=== PATIENT | male | born 1940 | race Caucasian/White ===

== ENCOUNTER 2017-06-26 07:46 | Day surgery (SDC) | payer MEDICARE ==
[~2017-06-26] VITALS: Ht 180.3 cm; Wt 99.8 kg
[~2017-06-26 07:46] MED LIST: ACETAMINOPHEN 325 MG TAB PO PRN; ACETYLCHOLINE OPHTH SOLN 1% 2ML (MIOCHOL-E) As Ordered ONE; AVODART PO; BALANCED SALT IRRIGATION SOLUTION 500ML BAG (FOR OR EYE MACHINE) As Ordered ONE; CARB25TA PO; CEFD1CAP8 PO; CEFUROXIME 1MG/0.1ML INTRACAMERAL INJ As Ordered ONE; CLARITIN PO; CO Q400C2 PO; COQ10 PO; COUM2.5T17 PO; CYCLOPENTOLATE 2% OPHTH SOLN 2ML BTL OD ONE; FLOM5CAP PO; FLOMAX PO; FOLI400T PO; GLUC750T22 PO; HEALON DUET (HEALON 10MG/ML 0.55ML & HEALON ENDOCOAT 30MG/ML 0.85ML) As Ordered ONE; HYDR-3713 PO; IRON28TA PO; JANU100T PO; KEFL500C17 PO; LIDOCAINE 1% SDV 5 ML VIAL As Ordered ONE; LIDOCAINE 3.5 % 1ML OPHTH TOPICAL GEL OU ONE; LISI10TA4 PO; LISIPOW PO; LORA10TA2 PO; LYRI75CA PO; MELO7.5T7 PO; OFLOXACIN 0.3 % (OCUFLOX) OPTH SOL 5ML OD ONE; PAXI10TA12 PO; PERC5TAB12 PO; PHENYLEPHRINE 2.5% OPHTH SOL 2ML OD ONE; POVIDONE-IODINE 5% OPHTH PREP SOL 30ML As Ordered ONE; PRAM1TAB3 PO; PROPARACAINE 0.5% OPHTH SOL 15ML OD PRN; ROPI1TAB PO; SIMV20TA2 PO; SYNT112T2 PO; SYNTHROID PO; TROPICAMIDE 1% OPHTH SOLN 2ML OD ONE; TYLE325T5 PO; VITA10002 PO; VITA100066 PO; ZEST1TAB PO; ZOCOR PO
[2017-06-26] MEDS ORDERED: PHENYLEPHRINE 2.5% OPHTH SOL 2ML As Ordered ONE (07:58)
[2017-06-26] MEDS ORDERED: TROPICAMIDE 1% OPHTH SOLN 2ML As Ordered ONE (07:59)
[2017-06-26] MEDS ORDERED: OFLOXACIN 0.3 % (OCUFLOX) OPTH SOL 5ML As Ordered ONE (07:59)
[2017-06-26] MEDS ORDERED: CYCLOPENTOLATE 2% OPHTH SOLN 2ML BTL As Ordered ONE (07:59)
[2017-06-26] MEDS ORDERED: D5W/0.2% SODIUM CHLORIDE 250 ML IV ONE (08:00)
[2017-06-26] MEDS ORDERED: MIDAZOLAM INJ 2 MG/2 ML VIAL (J2250) As Ordered ONE (09:21)
[2017-06-26] MEDS ORDERED: fentaNYL 100 MCG/2 ML INJECTION (J3010) As Ordered ONE (09:21)
[2017-06-26] MEDS ORDERED: AcetaZOLAMIDE 500 MG ER CAP PO ONE (10:00)
[2017-06-26] MEDS ORDERED: ONDANSETRON 4MG/2ML VIAL (J2405) IV PRN (10:00)
[2017-06-26] MEDS ORDERED: TRIMETHOBENZAMIDE 300 MG CAP PO PRN (10:00)
[2017-06-26 10:05] VITALS: BP 125/63
--- NOTE | 2017-06-27 09:29 | RO ---
DATE OF PROCEDURE: 06/26/2017 PREPROCEDURE DIAGNOSIS: Age related nuclear cataract right eye. POSTPROCEDURE DIAGNOSIS: Age related nuclear cataract right eye. PROCEDURE: Phacoemulsification and posterior chamber intraocular lens implantation. The lens used was U00T0, 20.0 diopter. SURGEON: Jeannie Melton MD ORGANIC PREPARATION ANALYST: ANESTHESIA: Topical with sedation. DESCRIPTION OF PROCEDURE: The patient was prepped and draped in the usual fashion. A lid speculum was placed between the lids. The eye was fixated. A stab incision was made to the anterior chamber, and 1% non-preserved lidocaine was instilled. Then, viscoelastic was instilled. The eye was re-fixated. A 2.75 mm sapphire keratome was used to make a clear corneal temporal limbal incision. Capsulorrhexis was begun with a 30-gauge bent needle and then carried out in a circular fashion with capsulorrhexis forceps. The lens was hydrodissected, and then the phacoemulsification unit was used to make a groove in the nucleus in two meridians. The nucleus was then cracked into four quadrants. Each quadrant was removed with the phacoemulsification unit. Any remaining cortex was removed with the irrigation and aspiration (I and A) unit. Capsular bag was refilled with viscoelastic. A posterior chamber intraocular lens was placed in the capsular bag without difficulty. Any remaining viscoelastic was removed with the I and A unit. The wound was hydrated, and Miochol and cefuroxime were instilled into the anterior chamber. The patient tolerated the procedure well and went to the recovery room in stable condition.
== END 2017-06-26 10:20 | disposition home or self-care (01) ==
LOC: M SDC 07:46
PROVIDERS: ATTEND Ophthalmology
DX: H25.11 Age-related nuclear cataract, right eye (principal); E78.00 Pure hypercholesterolemia, unspecified; E11.9 Type 2 diabetes mellitus without complications; E03.9 Hypothyroidism, unspecified; G25.81 Restless legs syndrome; M19.90 Unspecified osteoarthritis, unspecified site; F32.9 Major depressive disorder, single episode, unspecified; F41.9 Anxiety disorder, unspecified; N40.0 Benign prostatic hyperplasia without lower urinary tract symptoms; Z88.8 Allergy status to other drugs, medicaments and biological substances; Z91.018 Allergy to other foods; Z79.899 Other long term (current) drug therapy
CPT/HCPCS: 66984; J2250; J3010; V2632

== ENCOUNTER 2017-07-17 09:51 | Day surgery (SDC) | payer MEDICARE ==
[~2017-07-17] VITALS: Ht 180.3 cm; Wt 99.8 kg
[~2017-07-17 09:51] MED LIST changes: -CYCLOPENTOLATE 2% OPHTH SOLN 2ML BTL OD ONE; +CYCLOPENTOLATE 2% OPHTH SOLN 2ML BTL XX ONE; -OFLOXACIN 0.3 % (OCUFLOX) OPTH SOL 5ML OD ONE; +OFLOXACIN 0.3 % (OCUFLOX) OPTH SOL 5ML XX ONE; -PHENYLEPHRINE 2.5% OPHTH SOL 2ML OD ONE; +PHENYLEPHRINE 2.5% OPHTH SOL 2ML XX ONE; -PROPARACAINE 0.5% OPHTH SOL 15ML OD PRN; +PROPARACAINE 0.5% OPHTH SOL 15ML OS PRN; -TROPICAMIDE 1% OPHTH SOLN 2ML OD ONE; +TROPICAMIDE 1% OPHTH SOLN 2ML XX ONE
[2017-07-17] MEDS ORDERED: LR 1,000 ML IV ONE (10:00)
[2017-07-17] MEDS ORDERED: MIDAZOLAM INJ 2 MG/2 ML VIAL (J2250) As Ordered ONE (12:02)
[2017-07-17] MEDS ORDERED: fentaNYL 100 MCG/2 ML INJECTION (J3010) As Ordered ONE (12:02)
[2017-07-17 13:00] VITALS: BP 148/65
[2017-07-17] MEDS ORDERED: AcetaZOLAMIDE 500 MG ER CAP PO ONE (13:00)
[2017-07-17] MEDS ORDERED: LR 1,000 ML IV SCH (13:00)
[2017-07-17] MEDS ORDERED: ACETAMINOPHEN TAB 650MG DOSE (2X325MG) PO PRN (13:00)
[2017-07-17] MEDS ORDERED: TRIMETHOBENZAMIDE 300 MG CAP PO PRN (13:00)
--- NOTE | 2017-07-17 13:30 | RO ---
DATE OF PROCEDURE: 07/17/2017 PREPROCEDURE DIAGNOSIS: Age related nuclear cataract left eye. POSTPROCEDURE DIAGNOSIS: Age related nuclear cataract left eye. PROCEDURE: Phacoemulsification and posterior chamber intraocular lens implantation left eye. The lens used was AU00T0, 19.5 diopters. SURGEON: Jeannie Melton MD GROCERY DELIVERER: ANESTHESIA: Topical with sedation. DESCRIPTION OF PROCEDURE: The patient was prepped and draped in the usual fashion. A lid speculum was placed between the lids. The eye was fixated. A stab incision was made to the anterior chamber, and 1% non-preserved lidocaine was instilled. Then, viscoelastic was instilled. The eye was re-fixated. A 2.75 mm sapphire keratome was used to make a clear corneal temporal limbal incision. Capsulorrhexis was begun with a 30-gauge bent needle and then carried out in a circular fashion with capsulorrhexis forceps. The lens was hydrodissected, and then the phacoemulsification unit was used to make a groove in the nucleus in two meridians. The nucleus was then cracked into four quadrants. Each quadrant was removed with the phacoemulsification unit. Any remaining cortex was removed with the irrigation and aspiration (I and A) unit. Capsular bag was refilled with viscoelastic. A posterior chamber intraocular lens was placed in the capsular bag without difficulty. Any remaining viscoelastic was removed with the I and A unit. The wound was hydrated, and Miochol and cefuroxime were instilled into the anterior chamber. The patient tolerated the procedure well and went to the recovery room in stable condition.
== END 2017-07-17 13:05 | disposition home or self-care (01) ==
LOC: M SDC 09:51
PROVIDERS: ATTEND Ophthalmology
DX: H25.12 Age-related nuclear cataract, left eye (principal); E78.00 Pure hypercholesterolemia, unspecified; E11.9 Type 2 diabetes mellitus without complications; E03.9 Hypothyroidism, unspecified; M19.90 Unspecified osteoarthritis, unspecified site; F41.9 Anxiety disorder, unspecified; F32.9 Major depressive disorder, single episode, unspecified; G25.81 Restless legs syndrome; N40.0 Benign prostatic hyperplasia without lower urinary tract symptoms; Z88.8 Allergy status to other drugs, medicaments and biological substances; Z91.018 Allergy to other foods; Z79.899 Other long term (current) drug therapy
CPT/HCPCS: 66984; J2250; J3010; V2632

== ENCOUNTER → 2018-07-14 | Outpatient (REF) ==
[2018-07-14 11:56] LABS: RUBELLA IgG QUALITATIVE IMMUNE (IMMUNE)
== END ==
LOC: M LAB 09:09
DX: Z00.00 Encounter for general adult medical examination without abnormal findings (principal)

== ENCOUNTER → 2019-03-23 | Outpatient (REF) | payer MEDICARE ==
[~2019-03-23] MED LIST changes: -ACETAMINOPHEN 325 MG TAB PO PRN; -ACETYLCHOLINE OPHTH SOLN 1% 2ML (MIOCHOL-E) As Ordered ONE; -BALANCED SALT IRRIGATION SOLUTION 500ML BAG (FOR OR EYE MACHINE) As Ordered ONE; -CARB25TA PO; +CARB25TA9 PO; -CEFUROXIME 1MG/0.1ML INTRACAMERAL INJ As Ordered ONE; -CYCLOPENTOLATE 2% OPHTH SOLN 2ML BTL XX ONE; +FLOM0.4C39 PO; -FLOM5CAP PO; -HEALON DUET (HEALON 10MG/ML 0.55ML & HEALON ENDOCOAT 30MG/ML 0.85ML) As Ordered ONE; -LIDOCAINE 1% SDV 5 ML VIAL As Ordered ONE; -LIDOCAINE 3.5 % 1ML OPHTH TOPICAL GEL OU ONE; +LORA-243 PO; -LORA10TA2 PO; -OFLOXACIN 0.3 % (OCUFLOX) OPTH SOL 5ML XX ONE; -PHENYLEPHRINE 2.5% OPHTH SOL 2ML XX ONE; -POVIDONE-IODINE 5% OPHTH PREP SOL 30ML As Ordered ONE; -PRAM1TAB3 PO; +PRAM1TAB7 PO; -PROPARACAINE 0.5% OPHTH SOL 15ML OS PRN; -TROPICAMIDE 1% OPHTH SOLN 2ML XX ONE
[2019-03-23 14:03] LABS: APPEARANCE, URINE HAZY (CLEAR); BACTERIA, URINE AUTO NEGATIVE (NEGATIVE); BILIRUBIN, URINE AUTO NEGATIVE (NEGATIVE); BLOOD, URINE BLOOD 3+ (NEGATIVE); COLOR, URINE YELLOW (YELLOW); GLUCOSE, URINE (UA) AUTO NEGATIVE (NEGATIVE); KETONE, URINE AUTO TRACE mg/dL (NEGATIVE); LEUKOCYTE ESTERASE, URINE AUTO NEGATIVE (NEGATIVE); MUCUS, URINE SMALL (NEGATIVE); NITRITE, URINE AUTO NEGATIVE (NEGATIVE); PROTEIN, URINE AUTO 3+ mg/dL (NEGATIVE); RBC, URINE AUTO 70 /HPF (0-3); SPECIFIC GRAVITY URINE AUTO 1.024 (1.002-1.035); SQUAMOUS EPITHELIAL CELL UR AU 0 /HPF (0-6); WBC, URINE AUTO 3 /HPF (0-3)
== END ==
LOC: M SMT 13:30
PROVIDERS: ATTEND Nurse Practitioner Family
DX: R31.29 Other microscopic hematuria (principal)
CPT/HCPCS: 51798; 81001; 87186; 88108; G0463

== ENCOUNTER → 2019-03-27 | Outpatient (CLI) | payer MEDICARE ==
[~2019-03-27] MED LIST changes: +ISOVUE-370 76% 100ML VIAL (Q9967) As Ordered ONE
--- NOTE | 2019-03-27 11:17 | REP ---
CT urogram: CT scan abdomen and pelvis without and with IV contrast, multiphase postcontrast exam. History: Microscopic hematuria. No comparison abdomen CT. CT contrast dose: 100 mL of intravenous Isovue [address] findings: Digital preliminary supervisor solder making radiograph demonstrates a normal bowel gas pattern and a left hip replacement. The heart appears somewhat enlarged. On axial images there is a small right pleural effusion. No focal hepatic or splenic lesion is seen. There is opaque material layering in the dependent portion the gallbladder consistent with gravel like stones or mineralized sludge. No pancreatic lesion is observed. No adrenal lesion is seen on either side. No intrarenal calculus is observed. No evidence of hydronephrosis on either side. No renal mass lesion is observed. Kidneys enhance symmetrically. There are small bilateral parapelvic cysts noted. Delayed scan images show no evidence of renal mass or pelvic mass. No filling defect is seen in the collecting system. The ureters describe a normal course to the urinary bladder. The prostate elevates the bladder base. Prostate is moderately enlarged. No other mass effect is seen within the urinary bladder. No abdominal wall defect is seen. A normal appendix is observed. There is left colonic diverticulosis without CT evidence of diverticulitis. No bony destructive lesion is seen. Impression: 1. Enlarged prostate. No urinary tract calculus or other genitourinary mass. 2. Gravel like stones versus mineralized sludge in the gallbladder. 3. Small right pleural effusion. Cardiomegaly. Electronically Signed by Camilo Flores MD 03/27/2019 02:47 P
== END ==
LOC: M RAD 08:28
PROVIDERS: ATTEND Nurse Practitioner Family
DX: N41.0 Acute prostatitis (principal); K83.9 Disease of biliary tract, unspecified; J90 Pleural effusion, not elsewhere classified; I51.7 Cardiomegaly
CPT/HCPCS: 74178; Q9967

== ENCOUNTER 2019-06-15 12:30 | Inpatient (IN) | payer MEDICARE ==
[~2019-06-15] VITALS: Ht 180.3 cm; Wt 97.4 kg
[~2019-06-15 12:30] MED LIST changes: +CYAN100049 PO; -ISOVUE-370 76% 100ML VIAL (Q9967) As Ordered ONE; -VITA10002 PO
[2019-06-15] MEDS ORDERED: SIMV20TA2 PO (12:36)
[2019-06-15] MEDS ORDERED: LISI-542 PO (12:37)
[2019-06-15] MEDS ORDERED: FURO40TA2 PO (12:37)
[2019-06-15] MEDS ORDERED: CO-E100C3 PO (12:39)
[2019-06-15] MEDS ORDERED: HYDR-643 PO (12:39)
[2019-06-15] MEDS ORDERED: MAGN400T2 PO (12:39)
--- NOTE | 2019-06-15 14:33 | REP ---
Clinical: Cough and dyspnea. Technique: PA and lateral. Comparison: 07/07/2016. Findings: Minimal right basilar atelectasis and small right pleural effusion. Mediastinum and cardiac silhouette are stable and within normal limits. No pneumothorax. Skeletal structures intact. Impression: Trace right basilar atelectasis and small right pleural effusion. Electronically Signed by Ten Mcintyre MD 06/15/2019 02:25 P
[2019-06-15 14:53] LABS: BASO % 0.2 % (0.0-1.0); EOS # 0.2 10^3/uL (0.0-0.50); EOS % 1.8 % (0.0-3.0); HEMATOCRIT 40.7 % (42.0-52.0); HEMOGLOBIN 13.1 g/dl (13.5-17.5); LYMPH # 1.9 10^3/uL (1.5-4.5); LYMPH % 18.3 % (24.0-44.0); MEAN CORPUSCULAR HEMOGLOBIN 30.4 pg (27.0-33.0); MEAN CORPUSCULAR HGB CONC 32.2 g/dl (32.0-36.5); MEAN CORPUSCULAR VOLUME 94.4 fl (80.0-96.0); MONO # 0.9 10^3/uL (0.0-0.8); MONO % 8.5 % (0.0-5.0); NEUTROPHILS # 7.4 10^3/uL (1.8-7.7); NEUTROPHILS % 70.7 % (36.0-66.0); PLATELET COUNT, AUTOMATED 216 10^3/uL (150-450); RED BLOOD COUNT 4.31 10^6/uL (4.30-6.10); WHITE BLOOD COUNT 10.5 10^3/uL (4.0-10.0)
[2019-06-15 15:06] LABS: PROTHROMBIN TIME 12.9 SECONDS (11.8-14.0)
[2019-06-15 15:19] LABS: ALBUMIN 3.3 GM/DL (3.2-5.2); ALT/SGPT 7 U/L (12-78); BILIRUBIN,DIRECT 0.2 MG/DL (0.0-0.2); BILIRUBIN,TOTAL 0.5 MG/DL (0.2-1.0); BLOOD UREA NITROGEN 25 MG/DL (7-18); CALCIUM LEVEL 9.1 MG/DL (8.8-10.2); CARBON DIOXIDE LEVEL 28 MEQ/L (21-32); CHLORIDE LEVEL 107 MEQ/L (98-107); CK-MB VALUE MASS 3.5 NG/ML (<3.6); CPK CREATINE PHOSPHOKINASE 206 U/L (39-308); CREATININE FOR GFR 1.22 MG/DL (0.70-1.30); GLOMERULAR FILTRATION RATE > 60.0 (>42); GLUCOSE, FASTING 103 MG/DL (70-100); NT-PRO BNP 1463 PG/ML (<450); POTASSIUM SERUM 5.3 MEQ/L (3.5-5.1); SODIUM LEVEL 140 MEQ/L (136-145); TOTAL PROTEIN 6.5 GM/DL (6.4-8.2); TROPONIN I 0.06 NG/ML (< 0.10)
[2019-06-15] MEDS ORDERED: [UNRECOGNIZED DRUG - CODE] PO (17:01)
[2019-06-15] MEDS ORDERED: LEVO125T4 PO (17:01)
[2019-06-15] MEDS ORDERED: SITA50TAB PO (17:01)
[2019-06-15] MEDS ORDERED: ROPI2TAB24 PO (17:01)
--- NOTE | 2019-06-15 20:21 | ECGEPIP ---
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
--- NOTE | 2019-06-15 20:58 | HPEPDOC ---
[facility] Medical History & Physical Date of Admission Jun 15, 2019 Date of Service: Jun 15, 2019 Attending Physician: REGINALD DRIVER MD History and Physical CHIEF COMPLAINT: SOB HISTORY OF PRESENT ILLNESS: Pt is a 79 y/o male with hx of DMII, HTN, Hypothyroid, ?parkinson's, BPH and RLS who presents for worsened SOB over the last week. Pt notes that about 1 week prior to admission he started feeling noticeably more short of breath doing activities he would normally be able to to do. He notes needing to take more breaks. Pt also endorses waking up at night feeling short of breath. Pt saw his PMD last saturday (three days prior to admission) where he was prescribed lasix for "fluid around the heart". Pt says he took the medicine but it did not help his symptoms. Pt awoke on day of admission and as he wasn't feeling better he called his PMD who urged him to present to the ED for further evaluation. Pt endorses SOB with exertion, PND but denies other symptoms of fever, chills, chest pain, nausea, vomiting, diarrhea, dysuria, leg pain. PAST MEDICAL HISTORY: 1. DMII 2. HTN 3. Hypothyriod 4. ?Parkinson's 5. BPH 6. Restless leg syndrome PAST SURGICAL HISTORY: 1. Total hip arthroplasty 2. Prostate surgery 3. TURP 3. Removal of lipoma. SOCIAL HISTORY: Lives alone. Previous smoker, 1 pack per day for 15 years. Denies alcohol. Denies illicits FAMILY HISTORY: Cancer ALLERGIES: Please see below. REVIEW OF SYSTEMS: 10 point ROS reviewed and pertinent positives and negatives documented as per HPI. All other reviewed ROS negative HOME MEDICATIONS: Please see below. PHYSICAL EXAMINATION: VITAL SIGNS: Please see below GENERAL APPEARANCE:, Sitting up in bed in no acute distress, speaking in full sentences. No accessory muscle use. HEENT: PERRL, EOMI, OP clear, tongue straight, impaired hearing CARDIOVASCULAR: Bib, regular, nl s1/2 no mrg appreciated LUNGS: bibasilar crackles, no w/r ABDOMEN: soft, NT, ND MUSCULOSKELETAL: no gross deformities EXTREMITIES: 1+ pitting edema b/l, intact distal pulses NEUROLOGICAL: no focal deficits PSYCHIATRIC: nl mental status, A&Ox3 LABORATORY DATA: See below. IMAGING: CXR (My read): mild blunting of right CP angle, normal cardiac silhouette, no acute cardiopulmonary disease identified MICROBIOLOGY: Please see below. ASSESSMENT: Pt is a 79 y/o male with hx of DMII, HTN, Hypothyroid, ?parkinson's, BPH and RLS who presents for worsened SOB over the last week with decreased exercise tolerance and PND found to have proBNP 1463 along with crackles and LE pitting edema all consistent with heart failure as the etiology of pt's SOB. . PLAN: 1. probable heart failure ?preserved ejection fraction -admit to inpatient with tele -daily weights -strict I&O's -lasix 40mg IV BID -trend BMP, mag -echo pending 2. HTN -trend BP -restart home meds 3. hypothyroid -restart home meds 4. DMII -FSG -ISS -hold oral agents 5. Parkinson's -unclear dx -will cont. sinemet 6. BPH -cont. tamsulosin DVT PPX: lovenox Disposition: home pending echo and clinical improvement in symptoms Vital Signs Vital Signs Date Time Temp Pulse Resp B/P (MAP) Pulse Ox O2 Delivery O2 Flow Rate FiO2 06/15/19 18:01 158/85 (109) Room Air 06/15/19 17:45 48 97 06/15/19 17:00 16 06/15/19 13:31 95 06/15/19 12:31 97.2 Laboratory Data Labs 24H Laboratory Tests 2 06/15/19 14:39: Immature Granulocyte % (Auto) 0.5, White Blood Count 10.5H, Red Blood Count 4.31, Hemoglobin 13.1L, Hematocrit 40.7L, Mean Corpuscular Volume 94.4, Mean Corpuscular Hemoglobin 30.4, Mean Corpuscular Hemoglobin Concent 32.2, Red Cell Distribution Width 14.2, Platelet Count 216, Neutrophils (%) (Auto) 70.7H, Lymphocytes (%) (Auto) 18.3L, Monocytes (%) (Auto) 8.5H, Eosinophils (%) (Auto) 1.8, Basophils (%) (Auto) 0.2, Neutrophils # (Auto) 7.4, Lymphocytes # (Auto) 1.9, Monocytes # (Auto) 0.9H, Eosinophils # (Auto) 0.2, Basophils # (Auto) 0.0, Nucleated Red Blood Cells % (auto) 0.0, Prothrombin Time 12.9, Prothromb Time International Ratio 1.00, Anion Gap 5L, Glomerular Filtration Rate > 60.0, Calcium Level 9.1, Aspartate Amino Transf (AST/SGOT) 12, Alanine Aminotransferase (ALT/SGPT) 7L, Alkaline Phosphatase 79, Total Bilirubin 0.5, Direct Bilirubin 0.2, Total Creatine Kinase 206, Creatine Kinase MB 3.5, Creatine Kinase MB Relative Index 1.70, Troponin I 0.06, MC-Mum-D-Type Natriuretic Peptide 1463H, Total Protein 6.5, Albumin 3.3, Albumin/Globulin Ratio 1.03 CBC/BMP Laboratory Tests 06/15/19 14:39 Red Blood Count 4.31, Mean Corpuscular Volume 94.4, Mean Corpuscular Hemoglobin 30.4, Mean Corpuscular Hemoglobin Concent 32.2, Red Cell Distribution Width 14.2, Neutrophils (%) (Auto) 70.7 H, Lymphocytes (%) (Auto) 18.3 L, Monocytes (%) (Auto) 8.5 H, Eosinophils (%) (Auto) 1.8, Basophils (%) (Auto) 0.2, Neutrophils # (Auto) 7.4, Lymphocytes # (Auto) 1.9, Monocytes # (Auto) 0.9 H, Eosinophils # (Auto) 0.2, Basophils # (Auto) 0.0 Home Medications Scheduled Carbidopa/Levodopa (Carbidopa-Levodopa 25-100 Tab) 1 Tab Tab, 2 TAB PO TID 1200/1600/2000 Folic Acid (Folic Acid) 400 Mcg Tab, 400 MCG PO DAILY Furosemide (Furosemide) 40 Mg Tablet, 40 MG PO DAILY Hydroxyzine HCl (Hydroxyzine HCl) 10 Mg Tablet, 10 MG PO QHS Levothyroxine Sodium (Levothyroxine Sodium) 125 Mcg Tablet, 125 MCG PO DAILY Lisinopril (Lisinopril) 5 Mg Tablet, 5 MG PO DAILY Magnesium Oxide (Magnesium Oxide) 400 Mg Tablet, 400 MG PO DAILY Ropinirole HCl (Ropinirole ER) 2 Mg Tab.er.24h, 2 MG PO QAM Ropinirole HCl (Requip Xl) 6 Mg Tab.er.24h, 6 MG PO QHS Simvastatin (Simvastatin) 20 Mg Tablet, 20 MG PO QHS Sitagliptin (Januvia) 50 Mg Tablet, 50 MG PO DAILY Tamsulosin HCl (Flomax) 0.4 Mg Cap, 0.4 MG PO QHS Ubidecarenone/Vit E/Vit E Mix (Co-Enzyme Q10 100 mg Softgel) 1 Each Capsule, 1 CAP PO DAILY Allergies Coded Allergies: NSAIDS (Non-Steroidal Anti-Inflamma (Verified Allergy, Severe, tongue swelling, 06/15/19) Nut Tree (Verified Allergy, Mild, eyes swell, 06/15/19) rotigotine (Verified Adverse Reaction, Mild, INSOMNIA, 06/15/19) A-FIB/CHADSVASC A-FIB History Current/History of A-Fib/PAF?: No REGINALD DRIVER MD Jun 15, 2019 20:58
[2019-06-15 22:00] VITALS: BP 110/80
[2019-06-15] MEDS: ENOXAPARIN 40 MG/0.4 ML SYRINGE (J1650) SC SCH (22:02)
[2019-06-15] MEDS: SINEMET 25-100 MG TAB PO SCH (22:03)
[2019-06-15] MEDS: TAMSULOSIN 0.4 MG CAP PO SCH (22:04)
[2019-06-15] MEDS: SIMVASTATIN 20 MG TAB PO SCH (22:04)
[2019-06-15 22:43] LABS: BLOOD UREA NITROGEN 23 MG/DL (7-18); CALCIUM LEVEL 8.5 MG/DL (8.8-10.2); CARBON DIOXIDE LEVEL 27 MEQ/L (21-32); CHLORIDE LEVEL 107 MEQ/L (98-107); CREATININE FOR GFR 1.18 MG/DL (0.70-1.30); GLOMERULAR FILTRATION RATE > 60.0 (>42); GLUCOSE, FASTING 91 MG/DL (70-100); MAGNESIUM LEVEL 2.3 MG/DL (1.8-2.4); SODIUM LEVEL 139 MEQ/L (136-145)
[2019-06-15] MEDS: hydrOXYzine 10 MG TAB PO SCH (23:37)
[2019-06-15] MEDS: FUROSEMIDE 40 MG/4 ML VIAL (J1940) IV SCH (23:38)
[2019-06-16 05:43] VITALS: BP 104/56
[2019-06-16] MEDS: LEVOTHYROXINE 125MCG TABLET (0.125MG) PO SCH (05:51)
[2019-06-16 08:21] LABS: MEAN CORPUSCULAR HEMOGLOBIN 30.2 pg (27.0-33.0); MEAN CORPUSCULAR HGB CONC 32.5 g/dl (32.0-36.5); PLATELET COUNT, AUTOMATED 208 10^3/uL (150-450)
[2019-06-16 08:50] LABS: BLOOD UREA NITROGEN 21 MG/DL (7-18); CALCIUM LEVEL 8.6 MG/DL (8.8-10.2); CARBON DIOXIDE LEVEL 28 MEQ/L (21-32); CHLORIDE LEVEL 105 MEQ/L (98-107); CREATININE FOR GFR 1.22 MG/DL (0.70-1.30); GLOMERULAR FILTRATION RATE > 60.0 (>42); GLUCOSE, FASTING 187 MG/DL (70-100); POTASSIUM SERUM 4.9 MEQ/L (3.5-5.1); SODIUM LEVEL 138 MEQ/L (136-145)
[2019-06-16] MEDS: LISINOPRIL 5 MG TAB PO SCH (09:00)
[2019-06-16] MEDS: MAGNESIUM OXIDE 400 MG TAB (MAG-OX) PO SCH (09:04)
[2019-06-16] MEDS: SINEMET 25-100 MG TAB PO SCH ×3 (12:16→21:11)
[2019-06-16] MEDS: FUROSEMIDE 40 MG/4 ML VIAL (J1940) IV SCH (12:17)
[2019-06-16 14:00] VITALS: BP 128/65
--- NOTE | 2019-06-16 19:36 | IPNPDOC ---
Subjective Date Seen The patient was seen on 06/16/19. Subjective Chief Complaint/HPI Follow-up heart failure exacerbation Events since last encounter Patient seen and examined at bedside. Patient feeling much better today. Denies fevers, chills, chest pain, difficulty breathing, nausea, vomiting, diarrhea, PND, leg pain. Leg swelling improved. Objective Physical Examination General Exam: Positive: Alert, Cooperative, No Acute Distress Chest Exam: Positive: Rales Heart Exam: Positive: Bradycardic, Regular Rhythm, Normal S1, Normal S2 Telemetry: Positive: Bradycardia Abdomen Exam: Positive: Normal bowel sounds, Soft; Negative: Tenderness Extremity Exam: Positive: Edema (1+ pitting edema), Normal pulses Skin Exam: Negative: Rash, Breakdown Neuro Exam: Positive: Normal Speech, Other (no focal deficits) Psych Exam: Positive: Mental status NL, Mood NL, Oriented x 3 Assessment /Plan Assessment Pt is a 79 y/o male with hx of DMII, HTN, Hypothyroid, ?parkinson's, BPH and RLS who presents for worsened SOB over the last week with decreased exercise tolerance and PND found to have proBNP 1463 along with crackles and LE pitting edema all consistent with heart failure as the etiology of pt's SOB. Pt now improving with lasix. Plan/VTE VTE Prophylaxis Ordered?: Yes Plan 1. probable heart failure ?preserved ejection fraction -admit to inpatient with tele -daily weights -strict I&O's -lasix 40mg IV BID -trend BMP, mag -echo pending -spoke to cardiology and pt's ectopy and heart block are chronic. Pt to have rapid follow up with cardiology on discharge. 2. HTN -trend BP -restart home meds 3. hypothyroid -restart home meds 4. DMII -FSG -ISS -hold oral agents 5. Parkinson's -unclear dx -will cont. sinemet 6. BPH -cont. tamsulosin Disposition pending improvement in symptoms VS, I&O, 24H, Fishbone Vital Signs/I&O Vital Signs Date Time Temp Pulse Resp B/P (MAP) Pulse Ox O2 Delivery O2 Flow Rate FiO2 06/16/19 14:00 97.2 69 18 128/65 (86) 100 06/15/19 18:01 Room Air 06/15/19 13:31 95 I&O- Last 24 Hours up to 6 AM 06/16/19 06:00 Intake Total 1200 ml Output Total 1600 ml Balance -400 ml Laboratory Data 24H LABS Laboratory Tests 2 06/15/19 22:12: Anion Gap 5L, Glomerular Filtration Rate > 60.0, Blood Urea Nitrogen 23H, Creatinine 1.18, Sodium Level 139, Potassium Level 4.0#, Chloride Level 107, Carbon Dioxide Level 27, Calcium Level 8.5L, Magnesium Level 2.3 06/16/19 08:10: Anion Gap 5L, Glomerular Filtration Rate > 60.0, Blood Urea Nitrogen 21H, Creatinine 1.22, Sodium Level 138, Potassium Level 4.9#, Chloride Level 105, Carbon Dioxide Level 28, Calcium Level 8.6L, Nucleated Red Blood Cells % (auto) 0.0 CBC/BMP Laboratory Tests 06/15/19 22:12 Calcium Level 8.5 L 06/16/19 08:10 Calcium Level 8.6 L, Red Blood Count 4.30, Mean Corpuscular Volume 93.0, Mean Corpuscular Hemoglobin 30.2, Mean Corpuscular Hemoglobin Concent 32.5, Red Cell Distribution Width 14.3 REGINALD DRIVER MD Jun 16, 2019 19:36
--- NOTE | 2019-06-16 19:54 | ECHO ---
DATE OF PROCEDURE: 06/16/2019 DATE OF : 1940 AGE: 79 GENDER: Male. HEIGHT: 71 inches WEIGHT: 227 pounds BODY SURFACE AREA: 2.22 m2 PATIENT LOCATION: Inpatient, [address] [place] [address], room 4236. REFERRING PHYSICIAN: Abraham Hunt MD INDICATION: Dyspnea. 2D MEASUREMENTS: RV: 4.6 cm LV: 6.3 cm Septum: 1.3 cm Posterior wall: 1.3 cm Aortic root: 4.0 cm LA: 5.5 cm LVEF: 65%. DOPPLER MEASUREMENTS: AV: 1.4 m/s LVOT: 1.1 m/s LVOT diameter: 2.1 cm MV-E: 99, A: 55, EA ratio: 1.8 Early mitral deceleration time: 225 ms E prime: 4.6, A prime: 7.2, E/E prime ratio: 21.5 PCWP: 19 mmHg PV: 0.9 m/s Pulmonary artery acceleration time: 110 ms RVSP: 53 - 55 mmHg IVC: 2.6 cm COMMENTS: Normal sinus rhythm with first-degree AV block and right bundle branch block. M-mode and two-dimensional echocardiography was performed with pulsed, continuous wave, color flow and tissue Doppler studies. Moderately dilated left ventricle that was mildly hypertrophied symmetrically with normal wall motion. Moderately prominently dilated left atrium with impairment of LV diastolic function and at least mildly elevated estimated mean left atrial pressure. Mild - moderately dilated right ventricular right ventricle with normal wall motion and Doppler evidence of at least moderate pulmonary hypertension. Moderately dilated right atrium and IVC with reduced respiratory collapse in keeping with an elevated central venous pressure of 15 - 20 mmHg. Subtle aortic valvular sclerosis without stenosis and only very mild insufficiency. Mildly dilated aortic root. Slight thickening of the mitral annulus but normal leaflet thickness and excursion with mild mitral insufficiency. Normal appearing tricuspid valve with mild insufficiency. No apparent intracardiac mass or pericardial effusion. MTDD
[2019-06-16] MEDS: SIMVASTATIN 20 MG TAB PO SCH (21:10)
[2019-06-16] MEDS: TAMSULOSIN 0.4 MG CAP PO SCH (21:10)
[2019-06-16] MEDS: hydrOXYzine 10 MG TAB PO SCH (21:11)
[2019-06-16] MEDS: ENOXAPARIN 40 MG/0.4 ML SYRINGE (J1650) SC SCH (21:11)
[2019-06-16 22:00] VITALS: BP 135/71
[2019-06-17] MEDS: FUROSEMIDE 40 MG/4 ML VIAL (J1940) IV SCH (00:50)
[2019-06-17] MEDS ORDERED: ACETAMINOPHEN TAB 650MG DOSE (2X325MG) PO PRN (02:00)
[2019-06-17] MEDS: LEVOTHYROXINE 125MCG TABLET (0.125MG) PO SCH (05:45)
[2019-06-17 06:00] VITALS: BP 114/72
[2019-06-17 06:42] LABS: CALCIUM LEVEL 9.1 MG/DL (8.8-10.2); CREATININE FOR GFR 1.34 MG/DL (0.70-1.30); GLOMERULAR FILTRATION RATE 54.9 (>42); MAGNESIUM LEVEL 2.5 MG/DL (1.8-2.4); POTASSIUM SERUM 4.3 MEQ/L (3.5-5.1)
--- NOTE | 2019-06-17 09:38 | ECGEPIP ---
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
[2019-06-17] MEDS: MAGNESIUM OXIDE 400 MG TAB (MAG-OX) PO SCH (10:02)
[2019-06-17 10:03] VITALS: BP 114/72
[2019-06-17] MEDS: LISINOPRIL 5 MG TAB PO SCH (10:03)
[2019-06-17] MEDS: SINEMET 25-100 MG TAB PO SCH (12:22)
[2019-06-17] MEDS ORDERED: ELIQ5TAB PO (12:37)
[2019-06-17] MEDS ORDERED: APIXABAN 5 MG TAB (ELIQUIS) PO ONE (12:45)
--- NOTE | 2019-06-17 12:54 | DS.PDOC ---
Discharge Summary General Date of Admission Jun 15, 2019 at 15:50 Date of Discharge 06/17/19 Attending Physician: REGINALD DRIVER MD Discharge Summary PROCEDURES PERFORMED DURING STAY: None. ADMITTING DIAGNOSES: 1. acute on chronic heart failure with preserved ejection fraction (acute on chronic diastolic CHF) 2. DMII 3. HTN 4. Hypothyriod 5. ?Parkinson's 6. BPH 7. Restless leg syndrome DISCHARGE DIAGNOSES: 1. acute on chronic heart failure with preserved ejection fraction (acute on chronic diastolic CHF) 2. DMII 3. HTN 4. Hypothyriod 5. ?Parkinson's 6. BPH 7. Restless leg syndrome COMPLICATIONS/CHIEF COMPLAINT: Heart Failture. HISTORY OF PRESENT ILLNESS: As per admission H&P: "Pt is a 79 y/o male with hx of DMII, HTN, Hypothyroid, ?parkinson's, BPH and RLS who presents for worsened SOB over the last week. Pt notes that about 1 week prior to admission he started feeling noticeably more short of breath doing activities he would normally be able to to do. He notes needing to take more breaks. Pt also endorses waking up at night feeling short of breath. Pt saw his PMD last saturday (three days prior to admission) where he was prescribed lasix for "fluid around the heart". Pt says he took the medicine but it did not help his symptoms. Pt awoke on day of admission and as he wasn't feeling better he called his PMD who urged him to present to the ED for further evaluation. Pt endorses SOB with exertion, PND but denies other symptoms of fever, chills, chest pain, nausea, vomiting, diarrhea, dysuria, leg pain." HOSPITAL COURSE: Pt was diuresed with lasix 40mg IV with good improvement in symptoms. Pt feeling much better with improvement in crackles and LE edema. Spoke to cardiology with plan for pt to follow with them as an outpatient. On day of discharge pt flipped into destiney afib which is thought to be new for him despite records of ectopy in the past. Pt ambulatory with no RVR. Discussed with cardiology and plan to start pt on Eliquis for stroke prevention and pt to follow up within a week with the street vendor. Discussed with pt staying to be observed a little longer but pt refused and demanded to be discharged, stating that he would not stay another night. Discussed at length with pt that he needs to come back to the hospital if he has symptoms of dizziness, lightheadedness, syncope or presyncope. Pt verbalized understanding. Also discussed with pt the importance of keeping his appointment with the street vendor and his PMD. Pt verbalized understanding. Pt seen and examined on day of discharge. Pt deemed stable to be discharged home with close follow up. Pt denies any symptoms including fever, chills, CP, SOB, N/V/D, lightheadedness or dizziness. DISCHARGE MEDICATIONS: Please see below. ALLERGIES: Please see below. PHYSICAL EXAMINATION ON DISCHARGE: VITAL SIGNS: Please see below. GENERAL: ambulating around corridor in NAD, pleasant CARDIOVASCULAR EXAMINATION: irregularly irregular, normal rate RESPIRATORY EXAMINATION: CTA b/l no w/r/r ABDOMINAL EXAMINATION: soft, ND, NTTP EXTREMITIES: intact distal pulses, 1+ LE edema b/l (improved) SKIN: no skin breakdown NEUROLOGICAL EXAMINATION: no focal deficits, pt moves all extremities spontaneously PSYCHIATRIC EXAMINATION: nl mental status, nl mood, A&Ox3 LABORATORY DATA: Please see below. IMAGING: echo: Normal sinus rhythm with first-degree AV block and right bundle branch block. M-mode and two-dimensional echocardiography was performed with pulsed, continuous wave, color flow and tissue Doppler studies. Moderately dilated left ventricle that was mildly hypertrophied symmetrically with normal wall motion. Moderately prominently dilated left atrium with impairment of LV diastolic function and at least mildly elevated estimated mean left atrial pressure. Mild - moderately dilated right ventricular right ventricle with normal wall motion and Doppler evidence of at least moderate pulmonary hypertension. Moderately dilated right atrium and IVC with reduced respiratory collapse in keeping with an elevated central venous pressure of 15 - 20 mmHg. Subtle aortic valvular sclerosis without stenosis and only very mild insufficiency. Mildly dilated aortic root. Slight thickening of the mitral annulus but normal leaflet thickness and excursion with mild mitral insufficiency. Normal appearing tricuspid valve with mild insufficiency. No apparent intracardiac mass or pericardial effusion. ACTIVITY: As tolerated. DIET: diabetic cardiac DISCHARGE PLAN: Plan to follow up with PMD for BMP within 1wk and cardiology in 1wk DISPOSITION: home DISCHARGE INSTRUCTIONS: 1. Please follow up with your PMD in 1 week 2. Please follow up with your street vendor in 1 week ITEMS TO FOLLOWUP ON ON OUTPATIENT: 1. BMP for Cr DISCHARGE CONDITION: Stable. TIME SPENT ON DISCHARGE: 40 minutes. Vital Signs/I&Os Vital Signs Date Time Temp Pulse Resp B/P (MAP) Pulse Ox O2 Delivery O2 Flow Rate FiO2 06/17/19 10:03 114/72 06/17/19 06:00 97.3 67 19 96 06/15/19 18:01 Room Air 06/15/19 13:31 95 I&O- Last 24 Hours up to 6 AM 06/17/19 06:00 Intake Total 2435 ml Output Total 1800 ml Balance 635 ml Laboratory Data Labs 24H Laboratory Tests 2 06/17/19 05:13: Anion Gap 7L, Glomerular Filtration Rate 54.9, Blood Urea Nitrogen 25H, Creatinine 1.34H, Sodium Level 139, Potassium Level 4.3, Chloride Level 104, Carbon Dioxide Level 28, Calcium Level 9.1, Magnesium Level 2.5H CBC/BMP Laboratory Tests 06/17/19 05:13 Calcium Level 9.1 Discharge Medications Scheduled Apixaban (Eliquis) 5 Mg Tablet, 5 MG PO BID Carbidopa/Levodopa (Carbidopa-Levodopa 25-100 Tab) 1 Tab Tab, 2 TAB PO TID, (Reported) 1200/1600/2000 Folic Acid (Folic Acid) 400 Mcg Tab, 400 MCG PO DAILY, (Reported) Furosemide (Furosemide) 40 Mg Tablet, 40 MG PO DAILY, (Reported) Hydroxyzine HCl (Hydroxyzine HCl) 10 Mg Tablet, 10 MG PO QHS, (Reported) Levothyroxine Sodium (Levothyroxine Sodium) 125 Mcg Tablet, 125 MCG PO DAILY, (Reported) Lisinopril (Lisinopril) 5 Mg Tablet, 5 MG PO DAILY, (Reported) Magnesium Oxide (Magnesium Oxide) 400 Mg Tablet, 400 MG PO DAILY, (Reported) Ropinirole HCl (Ropinirole ER) 2 Mg Tab.er.24h, 2 MG PO QAM, (Reported) Ropinirole HCl (Requip Xl) 6 Mg Tab.er.24h, 6 MG PO QHS, (Reported) Simvastatin (Simvastatin) 20 Mg Tablet, 20 MG PO QHS, (Reported) Sitagliptin (Januvia) 50 Mg Tablet, 50 MG PO DAILY, (Reported) Tamsulosin HCl (Flomax) 0.4 Mg Cap, 0.4 MG PO QHS, (Reported) Ubidecarenone/Vit E/Vit E Mix (Co-Enzyme Q10 100 mg Softgel) 1 Each Capsule, 1 CAP PO DAILY, (Reported) Allergies Coded Allergies: NSAIDS (Non-Steroidal Anti-Inflamma (Verified Allergy, Severe, tongue swelling, 06/15/19) Nut Tree (Verified Allergy, Mild, eyes swell, 06/15/19) rotigotine (Verified Adverse Reaction, Mild, INSOMNIA, 06/15/19) REGINALD DRIVER MD Jun 17, 2019 12:54
== END 2019-06-17 14:24 | disposition home or self-care (01) | DRG 293 ==
LOC: M ED 12:30 → M ED INP 15:50 → M MSPAV 18:20
PROVIDERS: ADMIT Internal Medicine; ATTEND Internal Medicine
DX: I11.0 Hypertensive heart disease with heart failure (principal); I50.33 Acute on chronic diastolic (congestive) heart failure; E03.9 Hypothyroidism, unspecified; E11.9 Type 2 diabetes mellitus without complications; G20 Parkinson's disease; N40.0 Benign prostatic hyperplasia without lower urinary tract symptoms; G25.81 Restless legs syndrome; Z87.891 Personal history of nicotine dependence; Z79.899 Other long term (current) drug therapy; Z79.84 Long term (current) use of oral hypoglycemic drugs; Z91.018 Allergy to other foods; Z88.6 Allergy status to analgesic agent; Z88.8 Allergy status to other drugs, medicaments and biological substances

== ENCOUNTER → 2019-07-01 | Outpatient (REF) | payer MEDICARE ==
[~2019-07-01] MED LIST changes: +CO-E100C3 PO; +ELIQ5TAB PO; +FURO40TA2 PO; +HYDR-643 PO; +LEVO125T4 PO; +LISI-542 PO; +MAGN400T2 PO; +ROPI2TAB24 PO; +SITA50TAB PO; +[UNRECOGNIZED DRUG - CODE] PO
[2019-07-01 14:51] LABS: ALBUMIN 3.3 GM/DL (3.2-5.2); CALCIUM LEVEL 8.6 MG/DL (8.8-10.2); CREATININE FOR GFR 1.26 MG/DL (0.70-1.30); GLOMERULAR FILTRATION RATE 58.9 (>42); MAGNESIUM LEVEL 2.4 MG/DL (1.8-2.4); PHOSPHORUS LEVEL 3.5 MG/DL (2.5-4.9); POTASSIUM SERUM 4.9 MEQ/L (3.5-5.1); THYROID STIMULATING HORMONE 4.45 uIU/ML (0.358-3.740)
== END ==
LOC: M LABNEURO 09:44
PROVIDERS: ATTEND Internal Medicine Cardiovascular Disease
DX: I50.32 Chronic diastolic (congestive) heart failure (principal); I42.2 Other hypertrophic cardiomyopathy

== ENCOUNTER 2019-08-10 11:51 | Inpatient (IN) | payer MEDICARE ==
[~2019-08-10] VITALS: Ht 180.3 cm; Wt 99.3 kg
[~2019-08-10 11:51] MED LIST changes: +LIDOCAINE 1% MDV 20ML VIAL SQ PRN; +LR 1,000 ML IV ONE
[2019-08-10] MEDS ORDERED: AMIODARONE HCL 360 MG/200 ML PREMIXED BAG (NEXTERONE) As Ordered ONE (13:42)
[2019-08-10] MEDS ORDERED: LIDOCAINE 1% SDV INJ 30 ML VIAL As Ordered ONE (13:42)
[2019-08-10] MEDS ORDERED: fentaNYL 100 MCG/2 ML INJECTION (J3010) As Ordered ONE (13:51)
[2019-08-10] MEDS ORDERED: PROPOFOL 200 MG/20 ML VIAL As Ordered ONE (13:55)
[2019-08-10] MEDS ORDERED: LIDOCAINE 2% INJ 100 MG/5 ML SDV (FOR ANES.) As Ordered ONE (13:55)
[2019-08-10] MEDS ORDERED: ONDANSETRON 4MG/2ML VIAL (J2405) As Ordered ONE (13:55)
[2019-08-10] MEDS ORDERED: dexameTHASONE 4 MG/ML 1ML VIAL (J1100) As Ordered ONE (13:55)
[2019-08-10] MEDS ORDERED: FILTER 1.2 MICRON (ADULT TPN/MANNITOL/REMICADE) XX ONE (14:23)
[2019-08-10] MEDS ORDERED: ACETAMINOPHEN TAB 650MG DOSE (2X325MG) PO PRN (15:45)
[2019-08-10 16:00] VITALS: BP 117/63
[2019-08-10] MEDS: oxyCODONE 5MG TAB PO PRN ×2 (16:01→16:33)
[2019-08-10] MEDS ORDERED: oxyCODONE 5MG TAB As Ordered ONE (16:03)
[2019-08-10] MEDS ORDERED: fentaNYL 100 MCG/2 ML INJECTION (J3010) IV PRN (16:15)
--- NOTE | 2019-08-10 16:47 | RO ---
DATE OF PROCEDURE: 08/10/2019 PREOPERATIVE DIAGNOSES: 1. High-grade atrioventricular (AV) block. 2. Tachy-maddie syndrome/atrial fibrillation. POSTOPERATIVE DIAGNOSES: 1. High-grade atrioventricular (AV) block. 2. Tachy-maddie syndrome/atrial fibrillation. PROCEDURE: 1. Implantation of permanent dual-chamber pacemaker. 2. Direct current cardioversion. SURGEON/IMPLANTING CRYSTAL INSPECTOR: Dr. Hunter Valentine ANESTHESIOLOGIST: Dr. Clay Hwang TYPE OF ANESTHESIA: Monitored local anesthesia. DESCRIPTION OF PROCEDURE: With the patient in the fasting state having signed informed consent and having received Ancef 2 grams IV premedication, the patient was taken to the operating theater. Numerous skin electrodes were applied to facilitate continuous electrocardiographic monitoring. Self-adhesive cardioverting/defibrillating pads were applied in an anteroposterior configuration and connected to a bedside cardioverter defibrillator. The left subclavian region was prepped and draped in the usual fashion. The skin was infiltrated with 1% Xylocaine, and the left axillary vein was catheterized using the micropuncture technique. A 5 cm linear incision was then made several centimeters below and parallel to the left clavicle. Dissection was carried down to the level of the pectoralis fascia, and a pocket was fashioned below the level of the incision line. Two bipolar screw-in active fixation steroid-eluting pacing leads were then positioned to the distal high right atrial septum, and the high right atrial appendage under fluoroscopic and electrocardiographic control. The ventricular lead ([employer], model number [id number], serial number [id number]) measurements were: Stimulation threshold 0.5 V/0.4 ms/impedance 572 ohms. The R wave amplitude measured 15.2 mV. The atrial lead ([employer], model number [id number], serial number [id number]) measurements were: Initially in the operating room, the pacing threshold was 2.1 V/0.5 ms, lead impedance 411 ohms with P wave amplitude 1.5 - by the time we reached the recovery room, his pacing threshold had dropped to 1.3V/0.4 ms/impedance with P wave up to 2.1 mV. These leads were secured in position with sleeves sutured at the insertion site. At this point, the patient was given amiodarone 150 mg IV infusion over 10 minutes for two doses by 30 minutes. Additional IV sedation was administered by anesthesia, and we proceeded with direct current cardioversion. In order to restore an organized atrial mechanism, the patient required two direct current shocks (200 and 360 joules). With successful restorationist of a sinus mechanism, we started pacing at 80 beats per minute in hopes of preserving coordinated atrial mechanism. We will be starting him on amiodarone loading on environmental monitoring specialist over the next few days. At this point, the newly implanted pacing leads were then connected to a dual-chamber pulse generator ([employer] - Assurity MRI compatible, model number [id number], serial number [id number]) and appropriate DDD pacing was documented. The generator was then placed in the pocket and secured in position with a suture through the upper right-hand corner of the epoxy header. The subcutaneous tissues were approximated using a running chromic suture and the skin was closed using neno. A dry dressing was applied. The patient was returned to the recovery room in good condition. No apparent complications. Estimated blood loss less than 10 mL. Postoperative portable upright chest x-ray showed good lead position with no pneumothorax. EKG confirmed AV sequentially paced rhythm with paced QRS complexes having a normal axis in keeping with RV outflow tract stimulation. MTDD
--- NOTE | 2019-08-10 17:40 | REP ---
Portable chest x-ray: Single view. History: Post pacemaker implant. Comparison study: June 15, 2019. Findings: A bipolar pacemaker is seen inserted into the right heart via the left side. Mild cardiomegaly is observed. There is no evidence of pneumothorax or hydrothorax. Skin neno are seen adjacent to the power plant in the left subclavicular soft tissues. There is plate-like atelectasis versus fibrosis in the left base. Impression: Pacemaker in place. No complication identified. Electronically Signed by Camilo Flores MD 08/11/2019 08:48 A
[2019-08-10] MEDS: SINEMET 25-100 MG TAB PO SCH ×2 (17:52→20:20)
[2019-08-10] MEDS: AMIODARONE 200 MG TAB (PACERONE) PO SCH ×2 (17:52→20:20)
[2019-08-10 20:00] VITALS: BP 146/69
[2019-08-10] MEDS: SIMVASTATIN 20 MG TAB PO SCH (20:20)
[2019-08-10] MEDS: TAMSULOSIN 0.4 MG CAP PO SCH (20:20)
[2019-08-10] MEDS: hydrOXYzine 10 MG TAB PO SCH (20:21)
[2019-08-10] MEDS: DOCUSATE SODIUM 100 MG CAP PO SCH (20:21)
--- NOTE | 2019-08-10 20:21 | ECGEPIP ---
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
[2019-08-10] MEDS: rOPINIRole 2MG TAB PO SCH (21:00)
[2019-08-10] MEDS: ceFAZolin SOD 1 GM in D5W MINI-BAG PLUS 50 ML IV SCH (21:52)
[2019-08-11] VITALS (11 sets, daily range): BP systolic 120–148; BP diastolic 65–82; O2SAT 90–96
[2019-08-11] MEDS: SINEMET 25-100 MG TAB PO SCH ×6 (02:48→21:21)
[2019-08-11] MEDS: LEVOTHYROXINE 125MCG TABLET (0.125MG) PO SCH (05:34)
[2019-08-11] MEDS: ceFAZolin SOD 1 GM in D5W MINI-BAG PLUS 50 ML IV SCH ×2 (05:34→13:12)
--- NOTE | 2019-08-11 08:14 | REP ---
PA and lateral chest: Comparison is 08/10/2019. Dual chamber pacemaker entering from left is unchanged. Skin neno adjacent to the pacemaker power pack are unchanged. The left costophrenic angle is opacified. This may represent atelectasis or a left pleural fluid collection. There is no pneumothorax. Right lung is clear. Cardiac size is enlarged. This is unchanged. Impression: There is no pneumothorax. There is opacification of the left costophrenic angle. This is nonspecific and could represent atelectasis or a left pleural fluid collection. Electronically Signed by Sly Watts MD 08/11/2019 08:05 A
[2019-08-11] MEDS: LISINOPRIL 5 MG TAB PO SCH (09:06)
[2019-08-11] MEDS: rOPINIRole 2MG TAB PO SCH ×4 (09:06→21:21)
[2019-08-11] MEDS: DOCUSATE SODIUM 100 MG CAP PO SCH ×3 (09:06→21:21)
[2019-08-11] MEDS: MAGNESIUM OXIDE 400 MG TAB (MAG-OX) PO SCH (09:06)
[2019-08-11] MEDS: SITagliptin 50 MG TAB (JANUVIA) PO SCH (09:06)
[2019-08-11] MEDS: FUROSEMIDE 40 MG TAB PO SCH (09:06)
[2019-08-11] MEDS: AMIODARONE 200 MG TAB (PACERONE) PO SCH ×4 (09:06→21:22)
[2019-08-11] MEDS: SIMVASTATIN 20 MG TAB PO SCH (21:21)
[2019-08-11] MEDS: TAMSULOSIN 0.4 MG CAP PO SCH (21:21)
[2019-08-11] MEDS: hydrOXYzine 10 MG TAB PO SCH (21:22)
--- NOTE | 2019-08-11 21:50 | IPN ---
DATE: 08/11/2019 CARDIOLOGY PROGRESS NOTE SUBJECTIVE: The patient has been feeling well without any awareness of his heart action. Pacemaker incision has not been bothering him. Denies any chest discomfort or shortness of breath. Appears to be tolerating his amiodarone loading therapy without problem. Remains free of symptom or sign of thromboembolic event temporarily off his oral anticoagulation. OBJECTIVE: This pleasant overweight to slightly barrel-chested elderly male laying comfortably with head of bed elevated 30 degrees. Heart rate 80 beats per minute and regular, blood pressure 142/72, respiratory rate 16 per minute, O2 saturation 95% on room air. He is afebrile. His weight is only slightly up from yesterday. No pallor or cyanosis. Trachea midline. Neck veins currently not elevated. Normal chest expansion with healing left subclavian incision with only slight swelling, but no discoloration or discharge. 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 There has been occasional isolated PVCs. EKG: Tracing taken earlier today again shows consistent AV sequentially paced rhythm at 80 beats per minute with paced QRS complex having a normal axis and LBBB configuration in keeping with RV outflow track stimulation. This is unchanged in appearance from yesterday afternoon. CHEMISTRY: His fingerstick blood sugar this morning was a little elevated at 185, but at noon time was only 134. He continues on dietary measures and his Januvia as at home. IMPRESSION/PLAN: 1. Paroxysmal atrial fibrillation: Appears to be tolerating amiodarone quite well and so far has remained in an organized atrial rhythm - atrially paced. As mentioned, we will be resuming his customary Eliquis oral anticoagulation tomorrow evening. For the time being, remains on clerical receptionist with loading doses of amiodarone 200 mg q.i.d. 2. PVCs: With his current pacing rate and amiodarone, ectopic activity is considerably less than before. I am quite confident that amiodarone will eliminate these altogether. 3. Trifascicular block/intermittent high-grade AV block: Complete pacemaker interrogation was performed today showing excellent intracardiac electrograms and pacing thresholds. We were able to activate his atrial auto confirm function and prolong battery life. Estimated longevity is 9.6 years. For the time being, he is being paced at 80 beats per minute in order to minimize the risk of recurrent atrial fibrillation. In the near future, we anticipate if we will be able to reduced this rate to 70 beats per minute. 4. Heart failure (diastolic/chronic): No symptoms or signs of congestion. Chest x-ray today shows good pacing lead position, ongoing cardiomegaly and a degree of left lower lobe atelectasis. Remains on a modest salt and fluid intake restriction along with his combination lisinopril, Lasix, and magnesium oxide. 5. Abnormal EKG: Remains free of symptoms to suggest myocardial ischemia. Combination protective lisinopril, simvastatin and will be resuming Eliquis tomorrow. 6. Hypertensive heart disease (benign with heart failure): Compensated as mentioned with blood pressure slightly elevated, possibly related to his faster pacing rate. No medication change was made today, but we will be monitoring him tomorrow and assess whether the adjustment will be necessary. As mentioned, our intent is to continue monitoring for an additional 48 hours with his loading amiodarone therapy. MTDD
[2019-08-12] VITALS (25 sets, daily range): BP systolic 99–121; BP diastolic 58–64; O2SAT 89–97
[2019-08-12] MEDS: SINEMET 25-100 MG TAB PO SCH ×6 (00:13→21:07)
[2019-08-12] MEDS: LEVOTHYROXINE 125MCG TABLET (0.125MG) PO SCH (05:00)
--- NOTE | 2019-08-12 05:59 | ECGEPIP ---
[facility] Test Date: 2019-08-11 Pat Name: ALIX CAICEDO Department: Room: H3044-53 Gender: Male Candy Butcher: PETAR : 1940 Requested By: Hunter Valentine Order Number: [id number] Reading MD: Jesus Clancy Measurements Intervals [place] Rate: 80 P: 134 [place]: 225 QRS: 77 QRSD: 158 T: -77 QT: 446 QTc: 515 Interpretive Statements A-V sequential pacemaker No significant change since prior tracing of 08/10/2019 Electronically Signed on 08-12-2019 5:59:11 EDT by Jesus Clancy
[2019-08-12] MEDS ORDERED: SLF 3 ML SYR IV PRN (06:45)
[2019-08-12] MEDS: LISINOPRIL 5 MG TAB PO SCH (08:55)
[2019-08-12] MEDS: MAGNESIUM OXIDE 400 MG TAB (MAG-OX) PO SCH (08:56)
[2019-08-12] MEDS: rOPINIRole 2MG TAB PO SCH ×4 (08:56→21:07)
[2019-08-12] MEDS: FUROSEMIDE 40 MG TAB PO SCH (08:56)
[2019-08-12] MEDS: DOCUSATE SODIUM 100 MG CAP PO SCH ×3 (08:56→21:06)
[2019-08-12] MEDS: SITagliptin 50 MG TAB (JANUVIA) PO SCH (08:56)
[2019-08-12] MEDS: AMIODARONE 200 MG TAB (PACERONE) PO SCH ×4 (08:56→21:07)
[2019-08-12] MEDS ORDERED: OMEPRAZOLE 20 MG CAP PO ONE (13:45)
[2019-08-12] MEDS ORDERED: ONDANSETRON 4MG/2ML VIAL (J2405) IV ONE (13:45)
[2019-08-12] MEDS: SLF 3 ML SYR IV SCH ×2 (13:58→21:07)
[2019-08-12] MEDS: TAMSULOSIN 0.4 MG CAP PO SCH (21:06)
[2019-08-12] MEDS: APIXABAN 5 MG TAB (ELIQUIS) PO SCH (21:07)
[2019-08-12] MEDS: SIMVASTATIN 20 MG TAB PO SCH (21:07)
[2019-08-12] MEDS: hydrOXYzine 10 MG TAB PO SCH (21:07)
[2019-08-13] VITALS (23 sets, daily range): BP systolic 106–119; BP diastolic 56–65; O2SAT 92–97
[2019-08-13] MEDS: SINEMET 25-100 MG TAB PO SCH ×6 (01:01→21:45)
[2019-08-13] MEDS: LEVOTHYROXINE 125MCG TABLET (0.125MG) PO SCH (05:47)
[2019-08-13] MEDS: SLF 3 ML SYR IV SCH ×3 (05:47→21:46)
[2019-08-13 07:20] LABS: HEMATOCRIT 37.1 % (42.0-52.0); HEMOGLOBIN 12.2 g/dl (13.5-17.5); MEAN CORPUSCULAR HEMOGLOBIN 29.3 pg (27.0-33.0); MEAN CORPUSCULAR HGB CONC 32.9 g/dl (32.0-36.5); MEAN CORPUSCULAR VOLUME 89.2 fl (80.0-96.0); PLATELET COUNT, AUTOMATED 215 10^3/uL (150-450); RED BLOOD COUNT 4.16 10^6/uL (4.30-6.10); WHITE BLOOD COUNT 10.5 10^3/uL (4.0-10.0)
[2019-08-13 07:43] LABS: ALBUMIN 3.2 GM/DL (3.2-5.2); BLOOD UREA NITROGEN 20 MG/DL (7-18); CALCIUM LEVEL 8.5 MG/DL (8.8-10.2); CARBON DIOXIDE LEVEL 25 MEQ/L (21-32); CHLORIDE LEVEL 103 MEQ/L (98-107); CREATININE FOR GFR 1.08 MG/DL (0.70-1.30); GLOMERULAR FILTRATION RATE > 60.0 (>42); GLUCOSE, FASTING 116 MG/DL (70-100); MAGNESIUM LEVEL 2.3 MG/DL (1.8-2.4); PHOSPHORUS LEVEL 2.9 MG/DL (2.5-4.9); POTASSIUM SERUM 3.9 MEQ/L (3.5-5.1); SODIUM LEVEL 137 MEQ/L (136-145)
[2019-08-13] MEDS: APIXABAN 5 MG TAB (ELIQUIS) PO SCH ×2 (08:41→21:45)
[2019-08-13] MEDS: DOCUSATE SODIUM 100 MG CAP PO SCH ×2 (08:41→21:44)
[2019-08-13] MEDS: SITagliptin 50 MG TAB (JANUVIA) PO SCH (08:42)
[2019-08-13] MEDS: AMIODARONE 200 MG TAB (PACERONE) PO SCH ×4 (08:42→21:44)
[2019-08-13] MEDS: MAGNESIUM OXIDE 400 MG TAB (MAG-OX) PO SCH (08:42)
[2019-08-13] MEDS: FUROSEMIDE 40 MG TAB PO SCH (08:42)
[2019-08-13] MEDS: rOPINIRole 2MG TAB PO SCH ×4 (08:43→21:44)
[2019-08-13] MEDS: LISINOPRIL 5 MG TAB PO SCH (08:43)
--- NOTE | 2019-08-13 19:15 | IPN ---
DATE: 08/13/2019 CARDIOLOGY PROGRESS NOTE: SUBJECTIVE: The patient has been up walking in the halls and had been feeling well. He was unaware of his heart action this morning at 06:23 when a bout of nonsustained ventricular tachycardia was observed. Denies any incisional discomfort. Has been ambulating without effort-related chest discomfort, shortness of breath or dizziness. He has appeared to tolerate his medications without adverse effect. OBJECTIVE: Pleasant, elderly male with moderate weight problem, currently lying comfortably flat. Heart rate 80 beats per minute and regular, blood pressure 113/61, respiratory rate 18, oxygen saturation 96% on room air. Afebrile. No pallor or cyanosis. Trachea midline. Neck veins did not appear to be elevated. Good air entry over both lung mendoza with no adventitious sounds. No current dependent edema. 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 this morning while sitting had a 14-beat run of fairly monomorphic ventricular tachycardia that was somewhat irregular. Average rate at least 150 beats per minute. LABORATORY DATA: Hemoglobin this morning was 11.2, white blood cell count 10.5 with normal platelet count. Electrolytes were imbalance with BUN 20, creatinine 1.08, fasting glucose 116, serum calcium 8.5, but albumin was normal at 3.2, magnesium level was normal at 2.3. IMPRESSION/PLAN: 1. Nonsustained run of ventricular tachycardia: On amiodarone therapy had been doing actually fairly well with reduction in observed his frequent spontaneous premature ventricular contractions (PVCs) but did experience a nonsustained run of ventricular tachycardia earlier today. In light of this instead of sending him home today, we have requested he remain for an additional 48 hours. We will plan on obtaining a followup EKG and troponin I level on the morning as well as a followup echocardiogram/Doppler study. Remains on amiodarone 200 mg four times a day and magnesium oxide 400 mg daily. 2. Paroxysmal atrial fibrillation: Has been free of recurrent atrial tachyarrhythmia on amiodarone. We have resumed his oral anticoagulation Eliquis 5 mg twice a day without evidence of bleeding problems. 3. Atrioventricular (AV) block/dual-chamber pacemaker in situ: His device continues to function appropriately and his incision is healing well. 4. Heart failure (diastolic/chronic): Has no symptoms or signs of congestion. Has been ambulating on the spangler without problem. No change has been made to his current modest salt and fluid intake restriction with low-dose lisinopril, Lasix and magnesium. Followup echocardiogram/Doppler study has been requested. 5. Abnormal EKG: Continues to be free of symptomatic myocardial ischemia. Followup EKG and troponin I level scheduled for the morning. Continues on protective lisinopril, simvastatin, and Eliquis. 6. Hypertensive heart disease (benign with heart failure): Compensated as mentioned with controlled blood pressure. Chemistry confirms electrolyte balance with normal renal function. As mentioned, the patient understands the reason for continued telemetry monitoring with amiodarone loading.
[2019-08-13] MEDS: SIMVASTATIN 20 MG TAB PO SCH (21:44)
[2019-08-13] MEDS: TAMSULOSIN 0.4 MG CAP PO SCH (21:44)
[2019-08-13] MEDS: hydrOXYzine 10 MG TAB PO SCH (21:45)
[2019-08-14] VITALS (20 sets, daily range): BP systolic 115–158; BP diastolic 57–78; O2SAT 92–97
[2019-08-14] MEDS: SINEMET 25-100 MG TAB PO SCH ×5 (01:32→17:07)
[2019-08-14 06:11] LABS: TROPONIN I 0.02 NG/ML (< 0.10)
[2019-08-14] MEDS: LEVOTHYROXINE 125MCG TABLET (0.125MG) PO SCH (06:26)
[2019-08-14] MEDS: SLF 3 ML SYR IV SCH ×2 (06:27→14:52)
[2019-08-14] MEDS: FUROSEMIDE 40 MG TAB PO SCH (09:07)
[2019-08-14] MEDS: rOPINIRole 2MG TAB PO SCH ×3 (09:07→17:07)
[2019-08-14] MEDS: LISINOPRIL 5 MG TAB PO SCH (09:08)
[2019-08-14] MEDS: MAGNESIUM OXIDE 400 MG TAB (MAG-OX) PO SCH (09:08)
[2019-08-14] MEDS: SITagliptin 50 MG TAB (JANUVIA) PO SCH (09:08)
[2019-08-14] MEDS: APIXABAN 5 MG TAB (ELIQUIS) PO SCH (09:08)
[2019-08-14] MEDS: DOCUSATE SODIUM 100 MG CAP PO SCH (09:09)
[2019-08-14] MEDS: AMIODARONE 200 MG TAB (PACERONE) PO SCH ×3 (09:09→17:07)
[2019-08-14] MEDS ORDERED: FLEET ENEMA PR PRN (11:30)
[2019-08-14] MEDS ORDERED: AMIO200T PO (17:01)
--- NOTE | 2019-08-14 19:09 | ECHO ---
DATE OF PROCEDURE: 08/14/2019 DATE OF : 1940 AGE: 79 GENDER: Male. HEIGHT: 71 inches WEIGHT: 218 pounds BODY SURFACE AREA: 2.19 meters squared INPATIENT: Progressive care unit (PCU), room 3219. REFERRING PHYSICIAN: Dr. Valentine INDICATION: Cardiac dysrhythmias. Heart failure. MEASUREMENTS: 2D Measurements: RV: 4.6 cm LV: 5.4 cm Septum: 1.3 cm Posterior wall: 1.3 cm Aortic root: 3.6 cm LA: 4.8 cm LVEF: 50% DOPPLER MEASUREMENTS: AV: 1.23 meters per second LVOT: 0.77 meters per second LVOT diameter: 2.2 cm MV-E: 95, A: 72, EA ratio: 1.3 Early mitral deceleration time: 208 milliseconds E prime: 6.5, A prime: 5.9, E/E prime ratio: 13.8 Pulmonary capillary wedge pressure: 14.3 mmHg PV: 0.8 meters per second Pulmonary artery acceleration time: 85 milliseconds RVSP: 47 mmHg. IVC: 2.2 cm COMMENTS: Consistent AV sequentially paced rhythm. Paced QRS complexes with left bundle branch block configuration. Somewhat challenging study in light of the patient's body habitus but diagnostically useful in the information was still obtained. M-mode and two-dimensional echocardiography was performed with pulsed, continuous wave, color flow and tissue Doppler studies. Mild concentric left ventricle hypertrophy with obvious proximal septal wall motion abnormality due to right ventricular pacing but other left ventricular wall segments move normally. Moderately dilated left atrium with impairment of left ventricular (LV) diastolic function and current estimated mean left atrial pressure upper limits of normal to mildly increased. At least mildly dilated right heart chambers with normal wall motion but at least moderate pulmonary hypertension. Inferior vena cava (IVC) size upper limits of normal with currently normal estimated respiratory collapse against an elevated central venous pressure. Aortic valvular sclerosis without stenosis but mild insufficiency. Slightly thickened mitral annulus with somewhat low flow appearance to leaflet excursion but no posterior systolic buckling. Mild mitral regurgitation. Normal appearing tricuspid valve with mild-moderate insufficiency. Normal aortic root size. Pacing leads could be visualized traversing right heart structures but no separate intracardiac mass. No pericardial effusion.
--- NOTE | 2019-08-14 21:15 | ECGEPIP ---
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
--- NOTE | 2019-08-17 20:51 | DSES ---
DATE OF ADMISSION: 08/10/2019 DATE OF DISCHARGE: DISCHARGE SUMMARY CLINICAL SUMMARY: This 79-year-old gentleman with known hypertensive heart disease complicated by abnormal EKG, paroxysmal atrial fibrillation, recurrent nonsustained ventricular tachycardia, and very frequent premature ventricular contractions (PVCs), and heart failure (diastolic) was admitted to hospital following recent monitoring studies confirming intermittent high-grade atrioventricular (AV) block with his underlying conduction tissue disease (first-degree AV block, left anterior hemiblock, and right bundle branch block). It was believed that a permanent pacemaker would allow us to safely administer negative chronotropic therapy and antiarrhythmic therapy to deal with his tachyarrhythmias and regularize his rhythm and improve his congestion and quality of life. Please see my office note on the chart outlining his past medical history and other medical problems. INVESTIGATIONS IN COURSE IN HOSPITAL: Recent blood work showed a normal complete blood count and chemistry with mild prerenal azotemia. EKG showed underlying sinus rhythm with trifascicular block. Has also had atrial fibrillation that has been sustained recently. On the day of his admission, he was taken to the operating theater and underwent implantation of permanent dual-chamber pacemaker with monitored local anesthesia. In light of sustained atrial fibrillation, he also received direct-current cardioversion with initiation of amiodarone antiarrhythmic therapy. His device implanted was a [employer], [employer], MRI-compatible device. Postoperatively he was in consistent AV sequentially paced rhythm but continued to have occasional frequent isolated PVCs. There were no apparent complications. Followup chest x-rays showed stable lead position with obvious cardiomegaly. EKGs have shown consistent AV sequentially paced rhythm, currently programmed low rate 80 beats per minute (BPM) in hopes of or driving his arrhythmias. He was admitted to a telemetry unit for close observation with amiodarone loading therapy at 200 mg four times a day. Over the course of a few days he was hospital, his isolated ventricular ectopy dramatically decreased. He did have a single episode of nonsustained ventricular tachycardia August 11, but, as mentioned, no further complex arrhythmia with continued amiodarone loading. Blood work 08/13/2019 showed a hemoglobin of 12.2. Normal white blood cell count and platelet count. Electrolytes were in balance with BUN 20, creatinine 1.08, fasting glucose 116. Serum magnesium 2.3, albumin 3.2. Troponin I level was negative. Pro-BNP level was elevated at 1573. Has continued on a modest salt and caloric diet with his diabetes and congestion. We have also been limiting his fluid intake; however, he has been walking around the spangler and feeling well. No further fatigue and dyspnea as prior to his admission. Today with his compensated state, he was very keen to be discharged home. Current vital signs show a paced regular rhythm at 79-80 beats per minute, blood pressure was 115/57, respiratory rate 18 with oxygen saturation 99% on room air. He was afebrile. His weight in hospital and decreased from 100 kg to 99.3 kg. FINAL DIAGNOSES: 1. 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 2. Paroxysmal atrial fibrillation: Successfully cardioverted electrically at the time of pacemaker implant and has remained free of atrial tachyarrhythmia with amiodarone. Continues on Eliquis oral anticoagulation. 3. Extremely frequent premature ventricular contractions (PVCs)/nonsustained ventricular tachycardia: His ventricular arrhythmias appear to be responding well also to his amiodarone as mentioned above. He is tolerating this without significant adverse effect. 4. Heart failure (diastolic/chronic): No current symptoms or signs of congestion. Blood pressure and chemistry as mentioned. An echocardiogram/Doppler study was just performed and will be reviewed and dictated separately. We will be informing the patient of these test results when we see him in followup next week. 5. Abnormal EKG: Despite his frequent walks around the spangler, he has been free of symptomatic myocardial ischemia. EKGs have not shown any serial repolarization changes, and troponin I was negative. 6. Hypertensive heart disease (benign with heart failure): Compensated as mentioned with controlled blood pressure. DISCHARGE MEDICATIONS AND RECOMMENDATIONS: We have requested that he continue to perform activities of daily living but only light activities with his left arm and avoid getting his incision wet until his neno are removed in my office 08/18/2019. He has been encouraged to follow a modest salt and caloric restriction. His medications will currently be: - amiodarone 200 mg four times a day until August 21; 200 mg three times a day until September 21; two tablets daily until October 21; then one tablet daily. - Continues on Eliquis 5 mg twice a day - Lasix 40 mg daily - lisinopril 5 mg daily - magnesium oxide 400 mg daily - simvastatin 20 mg at bedtime - Flomax 0.4 mg at bedtime - Atarax 10 mg at bedtime for sleep - levofloxacin 125 mcg daily - folic acid 400 mg by mouth daily - Requip XL 2 mg every morning and 6 mg every evening - Januvia 50 mg daily - carbidopa/levodopa 25/100 two tablets by mouth three times a day (not for Parkinson's but his restless leg syndrome) - coenzyme Q10 at 100 mg daily He has been instructed to contact us promptly for any abnormal erythema, swelling, or discharge from his pacer incision, but it appears to be healing well.
== END 2019-08-14 18:10 | disposition home or self-care (01) | DRG 243 ==
LOC: M SDC 11:51 → M PCU 16:41 → M SDC 16:42 → M PCU 16:42
PROVIDERS: ADMIT Internal Medicine Cardiovascular Disease; ATTEND Internal Medicine Cardiovascular Disease
PROC: 02H63JZ Insertion of Pacemaker Lead into Right Atrium, Percutaneous Approach (ICD-10-PCS; 2019-08-10)
PROC: 02HK3JZ Insertion of Pacemaker Lead into Right Ventricle, Percutaneous Approach (ICD-10-PCS; 2019-08-10)
PROC: 0JH606Z Insertion of Pacemaker, Dual Chamber into Chest Subcutaneous Tissue and Fascia, Open Approach (ICD-10-PCS; principal; 2019-08-10 14:15)
DX: I45.3 Trifascicular block (principal); I50.32 Chronic diastolic (congestive) heart failure; I49.5 Sick sinus syndrome; I47.2 Ventricular tachycardia; I42.2 Other hypertrophic cardiomyopathy; N40.0 Benign prostatic hyperplasia without lower urinary tract symptoms; I71.2 Thoracic aortic aneurysm, without rupture; G25.81 Restless legs syndrome; I49.3 Ventricular premature depolarization; I11.0 Hypertensive heart disease with heart failure; I48.0 Paroxysmal atrial fibrillation; E03.9 Hypothyroidism, unspecified; Z79.01 Long term (current) use of anticoagulants; G47.31 Primary central sleep apnea; Z79.84 Long term (current) use of oral hypoglycemic drugs; Z79.899 Other long term (current) drug therapy; E66.9 Obesity, unspecified; E11.9 Type 2 diabetes mellitus without complications; Z68.29 Body mass index [BMI] 29.0-29.9, adult

== ENCOUNTER → 2019-09-22 | Outpatient (REF) | payer MEDICARE ==
[~2019-09-22] MED LIST changes: +AMIO200T PO; -LIDOCAINE 1% MDV 20ML VIAL SQ PRN; -LR 1,000 ML IV ONE
[2019-09-22 15:37] LABS: BASO % 0.4 % (0.0-1.0); EOS # 0.1 10^3/uL (0.0-0.5); EOS % 1.5 % (0.0-3.0); HEMATOCRIT 39.1 % (42.0-52.0); HEMOGLOBIN 12.5 g/dl (13.5-17.5); LYMPH # 1.9 10^3/uL (1.5-5.0); LYMPH % 23.3 % (24.0-44.0); MEAN CORPUSCULAR HEMOGLOBIN 30.3 pg (27.0-33.0); MEAN CORPUSCULAR VOLUME 94.9 fl (80.0-96.0); MONO # 0.5 10^3/uL (0.0-0.8); MONO % 5.9 % (0.0-5.0); NEUTROPHILS # 5.5 10^3/uL (1.5-8.5); NEUTROPHILS % 68.3 % (36.0-66.0); PLATELET COUNT, AUTOMATED 214 10^3/uL (150-450); RED BLOOD COUNT 4.12 10^6/uL (4.30-6.10)
[2019-09-22 16:00] LABS: ALBUMIN 3.7 GM/DL (3.2-5.2); BILIRUBIN,TOTAL 0.5 MG/DL (0.2-1.0); CALCIUM LEVEL 8.7 MG/DL (8.8-10.2); CREATININE FOR GFR 1.71 MG/DL (0.70-1.30); GLOMERULAR FILTRATION RATE 41.4 (>42); POTASSIUM SERUM 3.9 MEQ/L (3.5-5.1); THYROID STIMULATING HORMONE 2.84 uIU/ML (0.358-3.740); TOTAL PROTEIN 6.9 GM/DL (6.4-8.2)
== END ==
LOC: M LABNEURO 12:51
PROVIDERS: ATTEND Internal Medicine Cardiovascular Disease
DX: I48.0 Paroxysmal atrial fibrillation (principal); I50.32 Chronic diastolic (congestive) heart failure; I42.2 Other hypertrophic cardiomyopathy; I34.0 Nonrheumatic mitral (valve) insufficiency

== ENCOUNTER → 2019-10-28 | Outpatient (REF) | payer MEDICARE ==
[~2019-10-28] MED LIST changes: -SIMV20TA2 PO; +SIMV20TA22 PO
== END ==
LOC: M LAB REF 16:45
PROVIDERS: ATTEND Internal Medicine Pulmonary Disease
DX: R06.00 Dyspnea, unspecified (principal)

== ENCOUNTER → 2019-11-02 | Outpatient (CLI) | payer MEDICARE ==
[2019-11-02 12:26] LABS: HEMATOCRIT 37.2 % (42.0-52.0); HEMOGLOBIN 12.5 g/dl (13.5-17.5); MEAN CORPUSCULAR HEMOGLOBIN 31.8 pg (27.0-33.0); MEAN CORPUSCULAR HGB CONC 33.6 g/dl (32.0-36.5); MEAN CORPUSCULAR VOLUME 94.7 fl (80.0-96.0); PLATELET COUNT, AUTOMATED 243 10^3/uL (150-450); RED BLOOD COUNT 3.93 10^6/uL (4.30-6.10); WHITE BLOOD COUNT 8.4 10^3/uL (4.0-10.0)
[2019-11-02 12:55] LABS: ALBUMIN 3.6 GM/DL (3.2-5.2); CALCIUM LEVEL 8.8 MG/DL (8.8-10.2); CREATININE FOR GFR 1.85 MG/DL (0.70-1.30); GLOMERULAR FILTRATION RATE 37.8 (>42); PHOSPHORUS LEVEL 3.7 MG/DL (2.5-4.9); POTASSIUM SERUM 4.5 MEQ/L (3.5-5.1); THYROID STIMULATING HORMONE 4.94 uIU/ML (0.358-3.740)
== END ==
LOC: M LAB 11:11
PROVIDERS: ATTEND Internal Medicine Cardiovascular Disease
DX: I48.0 Paroxysmal atrial fibrillation (principal)

== ENCOUNTER → 2019-11-17 | Outpatient (CLI) | payer MEDICARE ==
[2019-11-17 10:24] LABS: TOTAL 25(OH) VITAMIN D 47.3 NG/ML (30.0-100.0)
== END ==
LOC: M LAB 08:36
PROVIDERS: ATTEND Physician Assistant Medical
DX: D51.9 Vitamin B12 deficiency anemia, unspecified (principal); E55.9 Vitamin D deficiency, unspecified; Z79.899 Other long term (current) drug therapy

== ENCOUNTER → 2019-12-17 | Outpatient (CLI) | payer MEDICARE ==
--- NOTE | 2019-12-17 16:48 | REP ---
Renal ultrasound for stage III chronic renal disease: Comparison is 06/12/2013. The right kidney measures 9.6 x 4.6 x 6.0 cm. Left kidney measures 10.0 x 4.7 x 6.2 cm. The kidneys are normal size. Renal cortical echogenicity is normal bilaterally. There is no hydronephrosis on the right on the left. There is a 7 mm calculus in the lower pole right kidney. There is a 6 mm calculus at the mid pole of the left kidney. There is a Bosniak type 1 1.4 cm cyst in the lower pole right kidney. The there is a Bosniak type 1 7 ml cyst in the lower pole of the left kidney. There are no solid renal masses. Impression: Bilateral nonobstructive renal calculi. Bilateral renal cysts. No hydronephrosis. No solid renal masses. Electronically Signed by Sly Watts MD 12/17/2019 04:39 P
== END ==
LOC: M RAD 13:49
PROVIDERS: ATTEND Internal Medicine Nephrology
DX: N18.3 Chronic kidney disease, stage 3 (moderate) (principal)

== ENCOUNTER → 2019-12-21 | Outpatient (CLI) | payer MEDICARE ==
[2019-12-21 10:56] LABS: HEMATOCRIT 39.7 % (42.0-52.0); HEMOGLOBIN 12.6 g/dl (13.5-17.5); MEAN CORPUSCULAR HEMOGLOBIN 30.9 pg (27.0-33.0); MEAN CORPUSCULAR HGB CONC 31.7 g/dl (32.0-36.5); MEAN CORPUSCULAR VOLUME 97.3 fl (80.0-96.0); PLATELET COUNT, AUTOMATED 206 10^3/uL (150-450); RED BLOOD COUNT 4.08 10^6/uL (4.30-6.10); WHITE BLOOD COUNT 8.2 10^3/uL (4.0-10.0)
[2019-12-21 11:37] LABS: ALBUMIN 3.9 GM/DL (3.2-5.2); BILIRUBIN,TOTAL 0.7 MG/DL (0.2-1.0); CALCIUM LEVEL 9.1 MG/DL (8.8-10.2); CREATININE FOR GFR 1.78 MG/DL (0.70-1.30); GLOMERULAR FILTRATION RATE 39.5 (>42); MAGNESIUM LEVEL 2.6 MG/DL (1.8-2.4); POTASSIUM SERUM 4.6 MEQ/L (3.5-5.1); THYROID STIMULATING HORMONE 1.83 uIU/ML (0.358-3.740); TOTAL PROTEIN 6.9 GM/DL (6.4-8.2)
== END ==
LOC: M LAB 09:58
PROVIDERS: ATTEND Internal Medicine Cardiovascular Disease
DX: I50.32 Chronic diastolic (congestive) heart failure (principal)

== ENCOUNTER → 2020-01-26 | Outpatient (CLI) | payer MEDICARE ==
[~2020-01-26] MED LIST changes: -ROPI1TAB PO; +ROPI1TAB3 PO
[2020-01-26 10:22] LABS: BASO % 0.3 % (0.0-1.0); EOS # 0.1 10^3/uL (0.0-0.5); EOS % 0.7 % (0.0-3.0); HEMATOCRIT 38.9 % (42.0-52.0); HEMOGLOBIN 12.7 g/dl (13.5-17.5); LYMPH # 1.7 10^3/uL (1.5-5.0); LYMPH % 19.6 % (24.0-44.0); MEAN CORPUSCULAR HEMOGLOBIN 31.4 pg (27.0-33.0); MEAN CORPUSCULAR HGB CONC 32.6 g/dl (32.0-36.5); MEAN CORPUSCULAR VOLUME 96.3 fl (80.0-96.0); MONO # 0.7 10^3/uL (0.0-0.8); NEUTROPHILS # 6.3 10^3/uL (1.5-8.5); NEUTROPHILS % 70.8 % (36.0-66.0); PLATELET COUNT, AUTOMATED 207 10^3/uL (150-450); RED BLOOD COUNT 4.04 10^6/uL (4.30-6.10); WHITE BLOOD COUNT 8.9 10^3/uL (4.0-10.0)
[2020-01-26 11:00] LABS: ALBUMIN 4.2 GM/DL (3.2-5.2); CALCIUM LEVEL 9.3 MG/DL (8.8-10.2); CREATININE FOR GFR 1.84 MG/DL (0.70-1.30); GLOMERULAR FILTRATION RATE 38.1 (>42); MAGNESIUM LEVEL 2.6 MG/DL (1.8-2.4); PHOSPHORUS LEVEL 4.2 MG/DL (2.5-4.9); POTASSIUM SERUM 4.4 MEQ/L (3.5-5.1); THYROID STIMULATING HORMONE 2.74 uIU/ML (0.358-3.740)
== END ==
LOC: M LAB 09:43
PROVIDERS: ATTEND Internal Medicine Cardiovascular Disease
DX: I48.0 Paroxysmal atrial fibrillation (principal)

== ENCOUNTER → 2020-02-01 | Outpatient (CLI) | payer MEDICARE ==
[2020-02-01 12:00] LABS: CALCIUM LEVEL 9.4 MG/DL (8.8-10.2); CREATININE FOR GFR 1.85 MG/DL (0.70-1.30); GLOMERULAR FILTRATION RATE 37.8 (>42); MAGNESIUM LEVEL 2.5 MG/DL (1.8-2.4); PHOSPHORUS LEVEL 3.4 MG/DL (2.5-4.9); POTASSIUM SERUM 3.6 MEQ/L (3.5-5.1)
--- NOTE | 2020-02-01 13:04 | REP ---
Chest x-ray: Two views. History: Paroxysmal atrial fibrillation. Comparison chest x-ray: August 11, 2019. Findings: A bipolar pacemaker is seen in the right heart via the left side as before. Heart is not enlarged. Mild linear fibrosis is seen in the left base. Lungs are well inflated and otherwise clear. There are degenerative changes in the thoracic spine. The pleural angles are sharp. The aorta somewhat tortuous. Impression: Linear fibrosis left base. Pacemaker. Otherwise no acute disease. Electronically Signed by Camilo Flores MD 02/01/2020 11:29 A
== END ==
LOC: M LAB 10:41
PROVIDERS: ATTEND Internal Medicine Cardiovascular Disease
DX: I50.33 Acute on chronic diastolic (congestive) heart failure (principal)

== ENCOUNTER 2020-03-02 20:46 | Observation (INO) | payer MEDICARE ==
[~2020-03-02] VITALS: Ht 180.3 cm; Wt 91.6 kg
[2020-03-02] MEDS ORDERED: CYAN100050 PO (21:14)
[2020-03-02] MEDS ORDERED: VITATAB74 PO (21:14)
[2020-03-02] MEDS ORDERED: SPIR-10 PO (21:14)
[2020-03-02] MEDS ORDERED: ISOS1TAB13 PO (21:14)
[2020-03-02] MEDS ORDERED: HYDR10TAB PO (21:14)
[2020-03-02] MEDS ORDERED: TORS100T PO (21:14)
[2020-03-02] MEDS ORDERED: ATOR40TA75 PO (21:14)
[2020-03-02] MEDS ORDERED: ROCA0.25 PO (21:14)
[2020-03-02] MEDS ORDERED: PACE200T PO (21:14)
[2020-03-02 21:50] LABS: BASO % 0.2 % (0.0-1.0); EOS # 0.1 10^3/uL (0.0-0.5); EOS % 1.1 % (0.0-3.0); HEMATOCRIT 33.7 % (42.0-52.0); HEMOGLOBIN 11.3 g/dl (13.5-17.5); LYMPH # 1.9 10^3/uL (1.5-5.0); LYMPH % 23.8 % (24.0-44.0); MEAN CORPUSCULAR HEMOGLOBIN 31.5 pg (27.0-33.0); MEAN CORPUSCULAR HGB CONC 33.5 g/dl (32.0-36.5); MEAN CORPUSCULAR VOLUME 93.9 fl (80.0-96.0); MONO # 0.7 10^3/uL (0.0-0.8); MONO % 9.1 % (0.0-5.0); NEUTROPHILS # 5.2 10^3/uL (1.5-8.5); NEUTROPHILS % 64.9 % (36.0-66.0); PLATELET COUNT, AUTOMATED 207 10^3/uL (150-450); RED BLOOD COUNT 3.59 10^6/uL (4.30-6.10)
[2020-03-02 22:29] LABS: CALCIUM LEVEL 8.3 MG/DL (8.8-10.2); CK-MB VALUE MASS 2.7 NG/ML (<3.6); CREATININE FOR GFR 1.91 MG/DL (0.70-1.30); DIGOXIN LEVEL 0.5 NG/ML (0.5-2.0); GLOMERULAR FILTRATION RATE 36.5 (>42); MB/CK RELATIVE INDEX 1.27 (< OR =4); TROPONIN I 0.08 NG/ML (< 0.10)
[2020-03-02] MEDS ORDERED: NS 500 ML IV ONE (23:15)
[2020-03-02] MEDS ORDERED: POTASSIUM CHLORIDE 10 MEQ SR TABLET PO ONE (23:15)
[2020-03-03] VITALS (9 sets, daily range): BP systolic 119–164; BP diastolic 51–74
[2020-03-03 00:24] LABS: MAGNESIUM LEVEL 1.6 MG/DL (1.8-2.4)
[2020-03-03] MEDS ORDERED: MAG SULF 1GM/100ML (MAG RUN) 1 GM in IV 1 EA IV ONE ×3 (00:30→17:00)
[2020-03-03] MEDS ORDERED: MAGNESIUM OXIDE 400 MG TAB (MAG-OX) PO ONE (00:45)
[2020-03-03] MEDS ORDERED: POTASSIUM CHLORIDE 10 MEQ SR TABLET PO ONE (00:45)
[2020-03-03] MEDS ORDERED: DIGO0.123 PO (01:18)
[2020-03-03] MEDS ORDERED: SYNT150T PO (01:18)
[2020-03-03] MEDS ORDERED: ELIQ5TAB PO (01:18)
[2020-03-03] MEDS ORDERED: ALLO100T PO (01:18)
[2020-03-03] MEDS ORDERED: CALCIUM GLUCONATE 1,000 MG in D5W MINI-BAG PLUS 100 ML IV ONE (01:45)
--- NOTE | 2020-03-03 02:51 | REP ---
Clinical: Chest pain . Comparison: 02/01/2020 . Findings: The mediastinum and cardiac silhouette are stable and within normal limits for portable technique. Subtle right basilar atelectasis cannot be excluded. No focal consolidation. No effusion. No pneumothorax. Skeletal structures are intact. Impression: Questionable basilar atelectasis. Mild underlying chronic interstitial changes. Electronically Signed by Ten Mcintyre MD 03/03/2020 02:42 A
[2020-03-03 05:28] LABS: IONIZED CALCIUM 4.4 MG/DL (4.5-5.3)
[2020-03-03] MEDS: LEVOTHYROXINE 150MCG TABLET (0.15MG) PO SCH (05:33)
[2020-03-03 05:34] LABS: BASO % 0.4 % (0.0-1.0); EOS # 0.1 10^3/uL (0.0-0.5); EOS % 0.9 % (0.0-3.0); HEMATOCRIT 32.8 % (42.0-52.0); LYMPH # 1.8 10^3/uL (1.5-5.0); LYMPH % 21.2 % (24.0-44.0); MEAN CORPUSCULAR HEMOGLOBIN 31.5 pg (27.0-33.0); MEAN CORPUSCULAR HGB CONC 33.5 g/dl (32.0-36.5); MONO # 0.7 10^3/uL (0.0-0.8); MONO % 7.8 % (0.0-5.0); NEUTROPHILS # 5.8 10^3/uL (1.5-8.5); NEUTROPHILS % 69.1 % (36.0-66.0); PLATELET COUNT, AUTOMATED 183 10^3/uL (150-450); RED BLOOD COUNT 3.49 10^6/uL (4.30-6.10); WHITE BLOOD COUNT 8.4 10^3/uL (4.0-10.0)
[2020-03-03 06:03] LABS: HEMOGLOBIN A1c 6.7 %
[2020-03-03 06:13] LABS: CHOLESTEROL RISK RATIO 3.205 (<5); CK-MB VALUE MASS 2.8 NG/ML (<3.6); CREATININE FOR GFR 1.65 MG/DL (0.70-1.30); GLOMERULAR FILTRATION RATE 43.2 (>42); MAGNESIUM LEVEL 2.3 MG/DL (1.8-2.4); MB/CK RELATIVE INDEX 1.43 (< OR =4); POTASSIUM SERUM 3.5 MEQ/L (3.5-5.1); THYROID STIMULATING HORMONE 2.38 uIU/ML (0.358-3.740); TROPONIN I 0.08 NG/ML (< 0.10)
[2020-03-03] MEDS: **hydrALAZINE** 10 MG TAB PO SCH ×2 (08:59→20:34)
[2020-03-03] MEDS: AMIODARONE 200 MG TAB (PACERONE) PO SCH (08:59)
[2020-03-03] MEDS: allopurinoL 100 MG TAB PO SCH (08:59)
[2020-03-03] MEDS: TORSEMIDE (DEMADEX) 50 MG PER 1/2 TAB PO SCH (08:59)
[2020-03-03] MEDS: SITagliptin 50 MG TAB (JANUVIA) PO SCH (08:59)
[2020-03-03] MEDS ORDERED: DIGOXIN 0.125 MG TAB PO SCH (09:00)
[2020-03-03] MEDS: APIXABAN 5 MG TAB (ELIQUIS) PO SCH ×2 (09:00→20:34)
[2020-03-03] MEDS: CALCITRIOL 0.25 MCG CAP (S0169) PO SCH (09:00)
[2020-03-03] MEDS: ISOSORBIDE DIN (ISORDIL) 10 MG TAB PO SCH ×2 (09:00→20:37)
--- NOTE | 2020-03-03 09:30 | HPE ---
DATE OF ADMISSION: 03/02/2020 CHIEF COMPLAINT: "[place] like I am going to pass out." HISTORY OF PRESENT ILLNESS: This is a 79-year-old full code with a history of atrial fibrillation and pacemaker, acute on chronic heart failure, chronic kidney disease stage III, B12 deficiency, recently seen in Dr. Valentine' office with a stress test being negative. Was seen recently for pacemaker adjustment today. This afternoon around 2:00 p.m., he felt like he was going to pass out while he was on the sofa. The patient had no chest pain, pressure, tightness. He felt lightheadedness. He felt like his legs were very heavy and for a few seconds he felt like he could not hear anything that anyone was saying. His feet were shaking. No prior episodes in the past. This prompted him to come for evaluation. Electrocardiogram (EKG) and telemetry showed nonsustained ventricular tachycardia. The patient did not lose his blood pressure . He was placed on telemetry. Blood pressure remained at 122 systolic. He was given intravenous fluid bolus by the emergency room. He was noted to have low potassium and magnesium, which were repleted. The patient's cardiac makers were negative. The hospitalist was called to admit for nonsustained ventricular tachycardia due to electrolyte abnormalities. No changes in his medications recently. The patient had complained also of some shortness of breath, recently had a 2 pound weight loss and had been placed on diuretics by Dr. Valentine. He denied any worsening lower extremity edema. Denied any paroxysmal nocturnal dyspnea or orthopnea. He said that he usually has a 30 to 40 foot dyspnea on exertion. He was recently seen by historiographer and said that he was looking okay. He had taken all of his medications today. PAST MEDICAL HISTORY: 1. Atrial fibrillation. 2. Congestive heart failure (CHF). Ejection fraction of 65% on 06/16/2019. 3. Moderate pulmonary hypertension. 4. Abnormal electrocardiogram (EKG) with chronic right bundle branch block, first degree AV block. 5. Intermittent high grade AV block. 6. Hypertension. 7. Diabetes. 8. Hypercholesterolemia. 9. Benign prostatic hypertrophy (BPH). 10. Restless legs. 11. Obstructive sleep apnea on bilevel positive airway pressure (BIPAP). 12. Hypothyroidism. PAST SURGICAL HISTORY: 1. Pacemaker. 2. Left hip replacement. 3. Pilonidal cyst resection. ALLERGIES: ASPIRIN causes facial swelling. HOME MEDICATIONS: - allopurinol 100 mg daily - amiodarone 200 mg daily - Apixaban 5 mg twice a day - atorvastatin 40 mg at night - calcitriol 0.25 mcg daily - carbidopa levodopa two tablets twice a day - digoxin 125 mcg twice a week - hydralazine 10 mg twice a day - isosorbide 10 mg twice a day - levothyroxine 150 mcg daily - Januvia 50 mg daily - Flomax 0.4 mg at night - torsemide 50 mg daily SOCIAL HISTORY: The patient smoked for 15 years, one pack a day, 15 year history of smoking, started smoking when he was a teenager. He is retired from the [employer]. He has a son, Scar, who is his healthcare proxy. He is a FULL CODE. FAMILY HISTORY: Father in his early 50s due to suicide with a gunshot. Mother in her 40s with "blood clot in the heart." REVIEW OF SYSTEMS: As per history of present illness. 12-point system otherwise negative. PHYSICAL EXAMINATION: VITAL SIGNS: Temperature 96.8, pulse 60, respiratory rate 17, blood pressure 111/57, 92% on room air. GENERAL: The patient is awake, alert, oriented times three. Answering questions appropriately. No pallor. No icterus. No jaundice. No cyanosis. No conversational dyspnea. No jugular venous distention (JVD) or thyromegaly. Moist mucous membranes. LUNGS: Clear to auscultation. No wheezing, rales or rhonchi. HEART: S1, S2. Sinus rhythm. Pacer in left anterior chest. ABDOMEN: Soft, nontender, nondistended. Positive bowel sounds. EXTREMITIES: No cyanosis, clubbing. Trace edema. Electrocardiogram (EKG): Paced rhythm. Ventricular rate of 60. Right bundle branch block. Left anterior fascicular block. LVH with nonspecific ST changes. LABORATORY DATA: White count 8, hemoglobin 11, hematocrit 33, platelet count 207. Sodium 140, potassium 3, chloride 100, bicarbonate 30, BUN 29, creatinine 1.91, glucose 153, calcium 8.3, ionized calcium 4.5, magnesium 1.6, troponin 0.08, total CK 212, MB fraction 2.7. Echocardiogram on 08/14/2019 showed left ventricular ejection fraction of 50%. AV paced rhythm with chronic left bundle branch block. Mild concentric LVH with a proximal septal wall motion abnormality due to right ventricular pacing. Impaired left ventricular diastolic function, at least moderate pulmonary hypertension. Mild mitral regurgitation. Mild to moderate tricuspid insufficiency. ASSESSMENT AND PLAN: This is a 79-year-old male with a history of atrial fibrillation with a bipolar pacemaker, hypertension, diastolic heart failure with an ejection fraction of 50%, diastolic dysfunction, mild to moderate pulmonary hypertension, mild mitral regurgitation, mild to moderate tricuspid insufficiency, hypertension, diabetes, hypercholesterolemia, benign prostatic hypertrophy (BPH), restless legs, obstructive sleep apnea on bilevel positive airway pressure (BIPAP), hypothyroidism. Past surgical history of pacemaker in 2019, left hip replacement, pilonidal cyst resection, who was admitted for complaints of near syncope due to nonsustained ventricular tachycardia and severe hypokalemia and hypomagnesemia. IMPRESSION: 1. Nonsustained ventricular tachycardia due to electrolyte abnormalities, rule out acute coronary syndrome. Cardiac markers were unremarkable. Patient had potassium and magnesium repleted in the emergency room. We will check levels in 6 hours. Obtain a repeat echocardiogram. Obtain records from Dr. Valentine' office. Continue on telemetry monitoring for now and cycle cardiac markers. Full supportive care with defibrillator pads. Per the patient, recent stress test was unremarkable, according to Dr. Valentine. We will try to obtain records in the morning. 2. Congestive heart failure (CHF), diastolic dysfunction. The patient may be resumed on his home dose of Torsemide. 3. Atrial fibrillation with pacer. Currently stable on Eliquis and amiodarone. Check digoxin level. 4. Type 2 diabetes. On sliding scale. Fingersticks before food and nightly. Consistent carbohydrate diet. Hypoglycemic protocol. 5. Chronic kidney disease stage III. At baseline creatinine. Avoid nephrotoxins. Renally dose all medications. May be resumed on his home dose of torsemide. 6. Dyslipidemia. On chronic atorvastatin. Check lipid panel in the morning. 7. Restless legs with carbidopa levodopa. 8. Hypertension. Resume on hydralazine and isosorbide. MTDD
[2020-03-03] MEDS: ACETAMINOPHEN TAB 650MG DOSE (2X325MG) PO PRN (10:27)
--- NOTE | 2020-03-03 10:30 | IPNPDOC ---
Subjective Date Seen The patient was seen on 03/03/20. Subjective Chief Complaint/HPI Patient offers no new complaints. No more palpitation, dizziness, etc. General: Denies: ROS Unobtainable, Chills, Night Sweats, Fatigue, Malaise, Normal Appetite, Other Symptoms Constitutional: Denies: Chills, Fever, Malaise, Night Sweats, Weakness, Fatigue, Weight Loss, Lethargy, Other Eyes: Denies: Pain, Vision change, Conjunctivae inflammation, Eyelid inflammation, Redness, Other Pulmonary: Denies: Dyspnea, Cough, Pleuritic Chest Pain, Other Symptoms Cardiovascular: Denies: Chest Pain, Palpitations, Orthopnea, Paroxysmal Noc. Dyspnea, Edema, Lt Headedness, Other Symptoms Gastrointestinal: Denies: Nausea, Vomiting, Abdominal Pain, Diarrhea, Constipation, Melena, Hematochezia, Other Symptoms Musculoskeletal: Denies: Neck Pain, Back Pain, Shoulder Pain, Arm Pain, Hand Pain, Leg Pain, Foot Pain, Joint Pain, Muscle Pain, Spasms, Other Symptoms Neurological: Denies: Weakness, Numbness, Incoordination, Change in speech, Confusion, Seizures, Other Symptoms Objective Physical Examination General Exam: Positive: Alert, Cooperative Eye Exam: Positive: PERRLA, Conjunctiva & lids normal ENT Exam: Positive: Atraumatic, Mucous membr. moist/pink Neck Exam: Positive: Supple Chest Exam: Positive: Clear to auscultation, Normal air movement Heart Exam: Positive: Rate Normal Telemetry: Positive: No significant arrhythmia, Atrial fibrillation Abdomen Exam: Positive: Normal bowel sounds, Soft, Hepatospenomegaly Extremity Exam: Positive: Normal pulses Skin Exam: Positive: Nl turgor and temperature Neuro Exam: Positive: Strength at 5/5 X4 ext, Cranial Nerves 3-12 NL Psych Exam: Positive: Mental status NL, Oriented x 3 Assessment /Plan Problems (1) NSVT (nonsustained ventricular tachycardia) Status: Acute Problem Text: Patient experienced nonsustained ventricular tachycardia due to electrolyte abnormalities such as potassium and magnesium Cardiac markers are negative so far Potassium and magnesium was repleted in the emergency room and levels are essentially within normal limit, now Continue surveillance monitor monitoring and will call Dr. Valentine for any further recommendations Possible discharge in a.m. if clinically stable (2) Hypomagnesemia Status: Resolved Problem Text: Replacements ordered Repeat levels in a.m. (3) Hypokalemia Status: Resolved Problem Text: Replacement ordered Repeat levels in a.m. (4) HTN (hypertension) Status: Chronic Problem Text: Continue home meds (5) Hypothyroidism Status: Chronic Problem Text: Continue home meds (6) Atrial fibrillation Status: Chronic Problem Text: Atrial fibrillation with pacemaker, ventricular rate is under control. Continue amiodarone and eliquis (7) Chronic diastolic CHF (congestive heart failure) Status: Chronic Problem Text: Well compensated. Continue home meds (8) CKD (chronic kidney disease) stage 3, GFR 30-59 ml/min Status: Chronic Problem Text: Chronic kidney disease stage III. At baseline creatinine. Avoid nephrotoxins. Renally dose all medications. May be resumed on his home dose of torsemide. (9) Diabetes mellitus Status: Chronic Problem Text: . Fingerstick blood sugar [facility] [place] Continue home meds Plan/VTE VTE Prophylaxis Ordered?: Yes VS, I&O, 24H, Fishbone Vital Signs/I&O Vital Signs Date Time Temp Pulse Resp B/P (MAP) Pulse Ox O2 Delivery O2 Flow Rate FiO2 03/03/20 08:59 60 03/03/20 08:00 97.5 20 135/63 (87) 96 Room Air I&O- Last 24 Hours up to 6 AM 03/03/20 06:00 Intake Total 310 ml Output Total 400 ml Balance -90 ml Laboratory Data 24H LABS Laboratory Tests 2 03/02/20 21:39: Immature Granulocyte % (Auto) 0.9, Neutrophils (%) (Auto) 64.9, Lymphocytes (%) (Auto) 23.8L, Monocytes (%) (Auto) 9.1H, Eosinophils (%) (Auto) 1.1, Basophils (%) (Auto) 0.2, Neutrophils # (Auto) 5.2, Lymphocytes # (Auto) 1.9, Monocytes # (Auto) 0.7, Eosinophils # (Auto) 0.1, Basophils # (Auto) 0.0, Nucleated Red Blood Cells % (auto) 0.0, Anion Gap 10, Glomerular Filtration Rate 36.5L, Calcium Level 8.3L, Magnesium Level 1.6L, Total Creatine Kinase 212, Creatine Kinase MB 2.7, Creatine Kinase MB Relative Index 1.27, Troponin I 0.08, Digoxin Level 0.5 03/03/20 01:06: Whole Blood Ionized Calcium 4.1L 03/03/20 05:22: Immature Granulocyte % (Auto) 0.6, Neutrophils (%) (Auto) 69.1H, Lymphocytes (%) (Auto) 21.2L, Monocytes (%) (Auto) 7.8H, Eosinophils (%) (Auto) 0.9, Basophils (%) (Auto) 0.4, Neutrophils # (Auto) 5.8, Lymphocytes # (Auto) 1.8, Monocytes # (Auto) 0.7, Eosinophils # (Auto) 0.1, Basophils # (Auto) 0.0, Nucleated Red Blood Cells % (auto) 0.0, Anion Gap 7L, Glomerular Filtration Rate 43.2, Calcium Level 9.0, Magnesium Level 2.3, Total Creatine Kinase 196, Creatine Kinase MB 2.8, Creatine Kinase MB Relative Index 1.43, Troponin I 0.08, Digoxin Level 0.6, Whole Blood Ionized Calcium 4.4L, Estimated Mean Plasma Glucose 146H, Hemoglobin A1c 6.7, GZ-[id number]-F-Type Natriuretic Peptide 837H, Triglycerides Level 173H, Total Cholesterol 109, LDL Cholesterol 40, Non-HDL Cholesterol (LDL + VLDL) 75, Total HDL Cholesterol 34L, Cholesterol/HDL Ratio 3.205, Thyroid Stimulating Hormone (TSH) 2.380 CBC/BMP Laboratory Tests 03/02/20 21:39 03/03/20 05:22 SHABNAM PERDOMO MD Mar 03, 2020 10:30
[2020-03-03 12:08] LABS: IONIZED CALCIUM 4.3 MG/DL (4.5-5.3)
[2020-03-03 12:33] LABS: MAGNESIUM LEVEL 2.3 MG/DL (1.8-2.4); POTASSIUM SERUM 3.8 MEQ/L (3.5-5.1)
[2020-03-03] MEDS: SINEMET 25-100 MG TAB PO SCH ×2 (13:21→18:20)
[2020-03-03] MEDS: POTASSIUM CHLORIDE 10 MEQ SR TABLET PO SCH (16:44)
--- NOTE | 2020-03-03 20:33 | ECGEPIP ---
[facility] - ED Test Date: 2020-03-02 Pat Name: ALIX CAICEDO Department: Room: [place] [address] Gender: Male [employer]: : 1940 Requested By: CONOR Harley Order Number: [id number] Reading MD: Keo Hernandez Measurements Intervals [place] Rate: 60 P: 181 AL: 306 QRS: -62 QRSD: 177 T: 91 QT: 639 QTc: 639 Interpretive Statements ELECTRONIC ATRIAL PACEMAKER RIGHT BUNDLE BRANCH BLOCK LEFT ANTERIOR FASCICULAR BLOCK LEFT VENTRICULAR HYPERTROPHY AND ST-T CHANGE Electronically Signed on 03-03-2020 20:33:10 EDT by Keo Hernandez
[2020-03-03] MEDS ORDERED: TAMSULOSIN 0.4 MG CAP PO SCH (21:00)
[2020-03-03] MEDS ORDERED: ATORVASTATIN 20 MG TAB PO SCH (21:00)
[2020-03-03] MEDS ORDERED: rOPINIRole 2MG TAB PO SCH (21:00)
[2020-03-04] VITALS (16 sets, daily range): BP systolic 111–127; BP diastolic 56–66
[2020-03-04] MEDS: LEVOTHYROXINE 150MCG TABLET (0.15MG) PO SCH (05:41)
[2020-03-04 06:15] LABS: BASO % 0.2 % (0.0-1.0); EOS # 0.1 10^3/uL (0.0-0.5); EOS % 1.1 % (0.0-3.0); HEMATOCRIT 31.4 % (42.0-52.0); HEMOGLOBIN 10.8 g/dl (13.5-17.5); LYMPH # 1.7 10^3/uL (1.5-5.0); MEAN CORPUSCULAR HEMOGLOBIN 32.3 pg (27.0-33.0); MEAN CORPUSCULAR HGB CONC 34.4 g/dl (32.0-36.5); MONO # 0.8 10^3/uL (0.0-0.8); MONO % 9.1 % (0.0-5.0); NEUTROPHILS # 6.6 10^3/uL (1.5-8.5); NEUTROPHILS % 71.1 % (36.0-66.0); PLATELET COUNT, AUTOMATED 195 10^3/uL (150-450); RED BLOOD COUNT 3.34 10^6/uL (4.30-6.10); WHITE BLOOD COUNT 9.2 10^3/uL (4.0-10.0)
[2020-03-04 07:25] LABS: BILIRUBIN,TOTAL 0.6 MG/DL (0.2-1.0); CALCIUM LEVEL 8.2 MG/DL (8.8-10.2); CREATININE FOR GFR 1.49 MG/DL (0.70-1.30); GLOMERULAR FILTRATION RATE 48.6 (>42); MAGNESIUM LEVEL 2.3 MG/DL (1.8-2.4); POTASSIUM SERUM 3.8 MEQ/L (3.5-5.1); TOTAL PROTEIN 5.8 GM/DL (6.4-8.2)
[2020-03-04] MEDS ORDERED: SLF 3 ML SYR IV PRN (07:30)
[2020-03-04] MEDS ORDERED: POTA10TA16 PO (08:14)
[2020-03-04] MEDS ORDERED: MAG-84TA PO (08:14)
[2020-03-04] MEDS: allopurinoL 100 MG TAB PO SCH (08:37)
[2020-03-04] MEDS: AMIODARONE 200 MG TAB (PACERONE) PO SCH (08:37)
[2020-03-04] MEDS: CALCITRIOL 0.25 MCG CAP (S0169) PO SCH (08:37)
[2020-03-04] MEDS: TORSEMIDE (DEMADEX) 50 MG PER 1/2 TAB PO SCH (08:37)
[2020-03-04] MEDS: ISOSORBIDE DIN (ISORDIL) 10 MG TAB PO SCH (08:37)
[2020-03-04] MEDS: SITagliptin 50 MG TAB (JANUVIA) PO SCH (08:37)
[2020-03-04] MEDS: POTASSIUM CHLORIDE 10 MEQ SR TABLET PO SCH (08:37)
[2020-03-04] MEDS: APIXABAN 5 MG TAB (ELIQUIS) PO SCH (08:38)
[2020-03-04] MEDS: **hydrALAZINE** 10 MG TAB PO SCH (08:38)
[2020-03-04] MEDS ORDERED: POTASSIUM CHLORIDE 10 MEQ SR TABLET PO SCH (09:00)
--- NOTE | 2020-03-04 10:00 | DS.PDOC ---
Discharge Summary General Date of Admission Mar 02, 2020 at 20:47 Date of Discharge 03/04/20 Discharge Summary PROCEDURES PERFORMED DURING STAY: None. ADMITTING DIAGNOSES: 1. Nonsustained ventricular tachycardia. DISCHARGE DIAGNOSES: 1. Nonsustained ventricular tachycardia, atrial fibrillation, status post permanent pacemaker placement, history of chronic heart failure, chronic kidney disease III, vitamin B12 deficiency, cardiac arrest with V. fib COMPLICATIONS/CHIEF COMPLAINT: NSVT. HISTORY OF PRESENT ILLNESS: This is a 79-year-old full code with a history of atrial fibrillation and pacemaker, acute on chronic heart failure, chronic kidney disease stage III, B12 deficiency, recently seen in Dr. Valentine' office with a stress test being negative. Was seen recently for pacemaker adjustment today. This afternoon around 2:00 p.m., he felt like he was going to pass out while he was on the sofa. The patient had no chest pain, pressure, tightness. He felt lightheadedness. He felt like his legs were very heavy and for a few seconds he felt like he could not hear anything that anyone was saying. His feet were shaking. No prior episodes in the past. This prompted him to come for evaluation. Electrocardiogram (EKG) and telemetry showed nonsustained ventricular tachycardia. The patient did not lose his blood pressure . He was placed on telemetry. Blood pressure remained at 122 systolic. He was given intravenous fluid bolus by the emergency room. He was noted to have low potassium and magnesium, which were corrected. The patient's cardiac makers were negative. The hospitalist was called to admit for nonsustained ventricular tachycardia due to electrolyte abnormalities. No changes in his medications recently. HOSPITAL COURSE: Patient was admitted with the diagnosis of nonsustained run of V. tach, about 13 beats in ED. Patient was found to have hypokalemia and hypomag nesemia for which he was corrected emergency room. Patient was admitted to PCU with telemetry monitoring. Patient remained without any incident to 3 PM yesterday when he had another run of nonsustained VT that about 14 beats. Patient again was given extra dose of KCl 40 mEq and magnesium sulfate 1 g IV piggyback elevated levels. Case was discussed with Dr. Ty, and he is advised to discharge patient home as there were no incident are meds noted last night on telemetry. When patient was ready to be discharged. He saw his blood from his IV line and passed out, followed by cardiac arrest with asystole and V. fib on the conveyor monitor. CPR was performed for at least 5 minutes and he was shocked once with a return to normal sinus rhythm. Followed by patient had a large amount of vomiting multiple times and then he became alert, oriented 3. His heart rate is 69, systolic blood pressure 135, pulse ox 99% on room air. I called again Dr. Ty and he recommended to transfer patient to tertiary care facility , [facility] [place] was called and discussed with Dr. Stephens on from cardiology, he accepted the patient and patient will be discharged to [facility] for cardiac cath and AICD placement. DISCHARGE MEDICATIONS: Please see below. ALLERGIES: Please see below. PHYSICAL EXAMINATION ON DISCHARGE: VITAL SIGNS: Please see below. GENERAL: Within normal limits HEENT: PERRLA. Extraocular muscles intact NECK: Supple CARDIOVASCULAR EXAMINATION: S1, S2, regular RESPIRATORY EXAMINATION: Clear to A&P ABDOMINAL EXAMINATION: Benign EXTREMITIES: No clubbing, cyanosis, edema SKIN: Normal NEUROLOGICAL EXAMINATION: . No focal motor sensory deficit PSYCHIATRIC EXAMINATION: Normal LABORATORY DATA: Please see below. IMAGING: As per disc PROGNOSIS: Good ACTIVITY: bed rest DIET: As tolerated DISCHARGE PLAN: Discharge to [facility] DISPOSITION [facility] DISCHARGE INSTRUCTIONS: 1. As per discharge instructions. ITEMS TO FOLLOWUP ON ON OUTPATIENT: 1. Follow with DISCHARGE CONDITION: Stable. TIME SPENT ON DISCHARGE: 32 minutes. Vital Signs/I&Os Vital Signs Date Time Temp Pulse Resp B/P (MAP) Pulse Ox O2 Delivery O2 Flow Rate FiO2 03/04/20 08:37 119/59 03/04/20 07:47 97.2 60 18 96 Room Air 03/04/20 00:00 2.0 I&O- Last 24 Hours up to 6 AM 03/04/20 06:00 Intake Total 1320 ml Output Total 1250 ml Balance 70 ml Laboratory Data Labs 24H Laboratory Tests 2 03/03/20 11:56: Whole Blood Ionized Calcium 4.3L, Magnesium Level 2.3 03/04/20 06:00: Magnesium Level 2.3, Immature Granulocyte % (Auto) 0.5, Neutrophils (%) (Auto) 71.1H, Lymphocytes (%) (Auto) 18.0L, Monocytes (%) (Auto) 9.1H, Eosinophils (%) (Auto) 1.1, Basophils (%) (Auto) 0.2, Neutrophils # (Auto) 6.6, Lymphocytes # (Auto) 1.7, Monocytes # (Auto) 0.8, Eosinophils # (Auto) 0.1, Basophils # (Auto) 0.0, Nucleated Red Blood Cells % (auto) 0.0, Anion Gap 7L, Glomerular Filtration Rate 48.6, Calcium Level 8.2L, Total Bilirubin 0.6, Aspartate Amino Transf (AST/SGOT) 23, Alanine Aminotransferase (ALT/SGPT) 29, Alkaline Phosphatase 72, Total Protein 5.8L, Albumin 3.0L, Albumin/Globulin Ratio 1.07 CBC/BMP Laboratory Tests 03/03/20 11:56 03/04/20 06:00 Discharge Medications Scheduled Allopurinol (Allopurinol) 100 Mg Tablet, 100 MG PO DAILY, (Reported) Amiodarone Hcl (Pacerone) 200 Mg Tablet, 200 MG PO DAILY, (Reported) Apixaban (Eliquis) 5 Mg Tablet, 5 MG PO BID, (Reported) Atorvastatin Calcium (Atorvastatin Calcium) 40 Mg Tablet, 40 MG PO QHS, (Reported) Calcitriol (Rocaltrol) 0.25 Mcg Capsule, 0.25 MCG PO DAILY, (Reported) Carbidopa/Levodopa (Carbidopa-Levodopa 25-100 Tab) 1 Tab Tab, 2 TAB PO BID, (Reported) 1300, 1900 Cyanocobalamin (Vitamin B-12) (Vitamin B-12) 1,000 Mcg Tablet, 1,000 MCG PO DAMIR Y, (Reported) Digoxin (Digoxin) 125 Mcg Tablet, 125 MCG PO 2XW, (Reported) SAT, . PCP TOLD PT TO DISCONTINUE Folic Acid (Folic Acid) 400 Mcg Tab, 400 MCG PO DAILY, (Reported) Hydralazine HCl (Hydralazine HCl) 10 Mg Tablet, 10 MG PO BID, (Reported) PCP TOLD PT TO START TID ON 03/03/2020 Isosorbide Dinitrate (Isosorbide Dinitrate) 10 Mg Tablet, 10 MG PO BID, (Reported) PCP TOLD PT TO START TID ON 03/03/2020 Levothyroxine Sodium (Synthroid) 150 Mcg Tablet, 150 MCG PO DAILY, (Reported) Magnesium l-Lactate (Mag-Tab Sr) 84 Mg Tablet.er, 84 MG PO DAILY Mv-Mn/Iron/Folic Acid/Herb 190 (Vitamin D3 Complete Caplet) 1 Each Tablet, 1 TAB PO DAILY, (Reported) Potassium Chloride (Potassium Chloride) 10 Meq Tab.er.prt, 1 TAB PO DAILY Ropinirole HCl (Ropinirole ER) 2 Mg Tab.er.24h, 2 MG PO BID, (Reported) Sitagliptin (Januvia) 50 Mg Tablet, 50 MG PO DAILY, (Reported) Tamsulosin HCl (Flomax) 0.4 Mg Cap, 0.4 MG PO QHS, (Reported) Torsemide (Torsemide) 100 Mg Tablet, 50 MG PO DAILY, (Reported) Ubidecarenone/Vit E/Vit E Mix (Co-Enzyme Q10 100 mg Softgel) 1 Each Capsule, 1 CAP PO DAILY, (Reported) Allergies Coded Allergies: NSAIDS (Non-Steroidal Anti-Inflamma (Verified Allergy, Severe, tongue swelling, 08/10/19) Nut Tree (Verified Allergy, Mild, eyes swell, 08/10/19) SHABNAM PERDOMO MD Mar 04, 2020 10:00
[2020-03-04] MEDS ORDERED: ONDANSETRON 4MG/2ML VIAL (J2405 PER 1MG) As Ordered ONE (10:46)
[2020-03-04] MEDS ORDERED: ONDANSETRON 4MG/2ML VIAL (J2405 PER 1MG) IV ONE (11:30)
[2020-03-04] MEDS ORDERED: ACETAMINOPHEN 325 MG TAB PO ONE (11:45)
[2020-03-04 11:50] LABS: IONIZED CALCIUM 4.6 MG/DL (4.5-5.3)
[2020-03-04] MEDS: ACETAMINOPHEN TAB 650MG DOSE (2X325MG) PO PRN (11:56)
[2020-03-04 12:14] LABS: CALCIUM LEVEL 8.7 MG/DL (8.8-10.2); CREATININE FOR GFR 1.64 MG/DL (0.70-1.30); GLOMERULAR FILTRATION RATE 43.5 (>42); MAGNESIUM LEVEL 2.4 MG/DL (1.8-2.4); MB/CK RELATIVE INDEX 1.08 (< OR =4); POTASSIUM SERUM 3.6 MEQ/L (3.5-5.1); TROPONIN I 0.06 NG/ML (< 0.10)
[2020-03-04] MEDS: SINEMET 25-100 MG TAB PO SCH (13:00)
--- NOTE | 2020-03-04 13:45 | REP ---
REASON FOR EXAM: History of ventricular fibrillation. COMPARISON: 03/02/2020 The technique utilized in obtaining the radiograph has magnified the cardiac silhouette and accentuated the interstitial markings. The cardiac silhouette is again magnified by technique. No new abnormal opacities have developed. Dual chamber bipolar pacemaker appears contiguous and appropriate. There is no significant change in the osseous structures. IMPRESSION: No evidence of acute cardiopulmonary disease. Findings as described above. Electronically Signed by Abad Benitez DO 03/04/2020 01:52 P
[2020-03-04] MEDS ORDERED: SLF 3 ML SYR IV SCH (14:00)
--- NOTE | 2020-03-04 15:05 | ECGEPIP ---
[facility] Test Date: 2020-03-04 Pat Name: ALIX CAICEDO Department: Room: [place] [address] Gender: Male Customer Insight Analyst: GALINA : 1940 Requested By: SHABNAM PERDOMO Order Number: [id number] Reading MD: Rich Ty Measurements Intervals Henrietta Rate: 74 P: 261 WY: 258 QRS: 81 QRSD: 186 T: -60 QT: 483 QTc: 538 Interpretive Statements AV-sequential paced rhythm Electronically Signed on 03-04-2020 15:05:11 EDT by Rich Ty
== END 2020-03-04 13:58 | disposition short-term general hospital (02) ==
LOC: M ED 20:46 → M ED INP 20:47 → CANRESERV 03-03 01:35 → ENRESERV 03-03 01:35 → M MSPAV 03-03 02:39 → M PCU 03-03 13:25 → M RR INP 03-04 10:59
PROVIDERS: ADMIT General Practice; ATTEND Internal Medicine
DX: I47.2 Ventricular tachycardia (principal); I48.91 Unspecified atrial fibrillation; Z95.0 Presence of cardiac pacemaker; I50.32 Chronic diastolic (congestive) heart failure; N18.3 Chronic kidney disease, stage 3 (moderate); E53.8 Deficiency of other specified B group vitamins; I46.9 Cardiac arrest, cause unspecified; E87.6 Hypokalemia; E83.42 Hypomagnesemia; R55 Syncope and collapse; I13.0 Hypertensive heart and chronic kidney disease with heart failure and stage 1 through stage 4 chronic kidney disease, or unspecified chronic kidney disease; E03.9 Hypothyroidism, unspecified; E11.22 Type 2 diabetes mellitus with diabetic chronic kidney disease; I45.19 Other right bundle-branch block; I44.0 Atrioventricular block, first degree; E78.5 Hyperlipidemia, unspecified; N40.0 Benign prostatic hyperplasia without lower urinary tract symptoms; G25.81 Restless legs syndrome; G47.33 Obstructive sleep apnea (adult) (pediatric); I27.20 Pulmonary hypertension, unspecified; Z96.642 Presence of left artificial hip joint; Z87.891 Personal history of nicotine dependence; Z79.899 Other long term (current) drug therapy; Z79.01 Long term (current) use of anticoagulants; Z79.4 Long term (current) use of insulin; Z88.8 Allergy status to other drugs, medicaments and biological substances; Z91.018 Allergy to other foods
CPT/HCPCS: 36415; 71045; 80048; 80053; 80061; 80162; 82330; 82550; 82553; 83036; 83735; 83880; 84443; 84484; 85025; 93005; 93041; 94760; 96365; 99285; G0378; J0610; J3475

== ENCOUNTER → 2021-02-10 | Outpatient (CLI) | payer MEDICARE ==
[~2021-02-10] MED LIST changes: +ALLO100T PO; -AMIO200T PO; +AMIO200T3 PO; +ATOR40TA75 PO; +CYAN100050 PO; +DIGO0.123 PO; -FOLI400T PO; +FOLI400T13 PO; +GASTROGRAFIN SOLUTION 30ML (Q9963) As Ordered ONE; +HYDR10TAB PO; +ISOS1TAB13 PO; +ISOVUE-370 76% 100ML VIAL As Ordered ONE; -LISI-542 PO; +LISI-898 PO; +LISI10TA22 PO; -LISI10TA4 PO; +MAG-84TA PO; +PACE200T PO; +POTA10TA16 PO; +ROCA0.25 PO; +SPIR-10 PO; +SYNT150T PO; +TORS100T PO; +VITATAB74 PO
--- NOTE | 2021-02-10 17:30 | REP ---
INDICATION: NASEA VOMITING, DIARRHEA, LEFT SIDED DISCOMFORT. COMPARISON: Comparison CT study March 27, 2019.. TECHNIQUE: Oral contrast is administered and helical scanning is acquired. 3 mm axial images are re-formatted. Coronal and sagittal MPR images are provided. FINDINGS: Digital preliminary health policy analyst radiograph demonstrates cardiomegaly with pacemaker and a left hip arthroplasty. Bowel gas pattern is unremarkable. The lung bases are essentially clear on axial CT images. There is mild pericardial thickening or for minimal fluid. The liver is somewhat more opaque diffusely than the spleen. This can be seen in primary or secondary hemochromatosis. No focal liver lesion is seen. There is opaque material again noted to be layering in the dependent portion the gallbladder consistent with cysts small gravel-like gallstones. Normal adrenal glands are observed bilaterally. No abnormality is seen in the pancreas. Spleen is unremarkable. The kidneys are morphologically intact. No calculus mass or cyst is seen. No hydronephrosis is noted. Normal caliber aorta is seen. No retroperitoneal mass or adenopathy is observed. Mild prostate enlargement and dystrophic prostate calcifications are again seen. Urinary bladder is unremarkable. Small and large bowel loops are normal in the abdomen and pelvis. No obstructive lesion is seen. No mural thickening or bowel mass is observed. There is left colonic diverticulosis without CT evidence of diverticulitis. No abdominal wall defect is seen. No bony destructive lesion is seen. IMPRESSION: Cholelithiasis. Liver parenchyma is slightly more dense diffusely than spleen question mild hemochromatosis. Colonic diverticulosis without CT evidence of diverticulitis. Dystrophic calcifications in the mildly enlarged prostate. Cardiomegaly with pacemaker. Small amount of pericardial fluid. <Electronically signed by Tobi Flores > 02/10/21 [id number]
== END ==
LOC: M RAD 13:17
PROVIDERS: ATTEND Nurse Practitioner
DX: K80.20 Calculus of gallbladder without cholecystitis without obstruction (principal); I51.7 Cardiomegaly; Z95.0 Presence of cardiac pacemaker
CPT/HCPCS: 74176; Q9963

== ENCOUNTER → 2021-02-15 | Outpatient (CLI) | payer MEDICARE ==
[~2021-02-15] MED LIST changes: -GASTROGRAFIN SOLUTION 30ML (Q9963) As Ordered ONE; -ISOVUE-370 76% 100ML VIAL As Ordered ONE
--- NOTE | 2021-02-15 16:51 | REP ---
INDICATION: CHRONIC COMBINED SYSTOLIC AND DIASTOLIC HRT FAIL. COMPARISON: Portable chest 03/04/2020, PA lateral 02/01/2020 TECHNIQUE: Two views FINDINGS: The previous a dual lead pacer over the left chest and its leads have been removed since the most recent chest x-ray of 03 04 20. There is now a multilead pacer unit over the left upper chest the knee ICD lead in the right ventricle another lead in the right atrium and an epicardial lead at the cardiac apex. There is left atrial enlargement with elevation of the mainstem bronchus. Transverse cardiac diameter is borderline. The aorta is mildly tortuous but without gross aneurysm. Airway intact symmetric. Maria Alejandra without mass. I do not see any significant underlying interstitial disease. Some curvilinear scarring in the left CP angle and an epicardial fat pad associated with it. No definite effusion, acute infiltrate, parenchymal mass or pulmonary nodule. Some minor apical pleural scarring on the right compared to the left. All of this stable. The bony thorax shows marginal osteophytes mid and lower thoracic region without compression deformity or destructive lesions. Visualized ribs, shoulders and clavicles without acute finding IMPRESSION: 1. New multilead pacer with AICD lead into the right ventricle, a right atrial lead and an epicardial lead at the apex of the heart. The previous left-sided pacer unit and both of its leads removed. 2. There is left atrial enlargement and borderline heart size without vascular redistribution or destiney edema. Some minor basilar fibrotic changes on the left with and associated epicardial fat pad 3. No acute infiltrate, effusion or mass. No acute bony finding <Electronically signed by Won Wagner > 02/15/21 [id number]
== END ==
LOC: M RAD 12:54
PROVIDERS: ATTEND Internal Medicine Cardiovascular Disease
DX: I50.42 Chronic combined systolic (congestive) and diastolic (congestive) heart failure (principal); Z95.0 Presence of cardiac pacemaker

== ENCOUNTER → 2021-03-06 | Outpatient (CLI) | payer MEDICARE ==
[2021-03-06 14:15] LABS: CALCIUM LEVEL 8.8 MG/DL (8.8-10.2); CREATININE FOR GFR 1.81 MG/DL (0.70-1.30); GLOMERULAR FILTRATION RATE 38.7 (>42)
[2021-03-06 14:16] LABS: ALBUMIN 3.7 GM/DL (3.2-5.2); BILIRUBIN,TOTAL 0.7 MG/DL (0.2-1.0); MAGNESIUM LEVEL 2.4 MG/DL (1.8-2.4); TOTAL PROTEIN 6.4 GM/DL (6.4-8.2)
== END ==
LOC: M PLALAB 09:29
PROVIDERS: ATTEND Internal Medicine Cardiovascular Disease
DX: I50.42 Chronic combined systolic (congestive) and diastolic (congestive) heart failure (principal); I42.2 Other hypertrophic cardiomyopathy; I27.81 Cor pulmonale (chronic)

== ENCOUNTER → 2021-03-30 | Outpatient (CLI) | payer MEDICARE ==
[2021-03-30 10:11] LABS: ALBUMIN 3.5 GM/DL (3.2-5.2); CREATININE FOR GFR 1.95 MG/DL (0.70-1.30); GLOMERULAR FILTRATION RATE 35.5 (>42); MAGNESIUM LEVEL 2.5 MG/DL (1.8-2.4); PHOSPHORUS LEVEL 3.4 MG/DL (2.5-4.9); POTASSIUM SERUM 3.7 MEQ/L (3.5-5.1); THYROID STIMULATING HORMONE 0.926 uIU/ML (0.358-3.740)
== END ==
LOC: M LAB 09:00
PROVIDERS: ATTEND Internal Medicine Cardiovascular Disease
DX: I50.42 Chronic combined systolic (congestive) and diastolic (congestive) heart failure (principal)

== ENCOUNTER → 2021-04-27 | Outpatient (REF) | payer MEDICARE ==
[2021-04-27 18:34] LABS: PERCENT SATURATION 30.4 % (19.7-50.0)
== END ==
LOC: M LAB REF 16:40
PROVIDERS: ATTEND Internal Medicine Nephrology
DX: D50.9 Iron deficiency anemia, unspecified (principal)

== ENCOUNTER → 2021-05-29 | Outpatient (CLI) | payer MEDICARE ==
--- NOTE | 2021-05-29 10:24 | REP ---
INDICATION: NAUSEA W/ VOMITING COMPARISON: Correlation with CT dated 02/10/2021 TECHNIQUE: Real time bonilla scale ultrasound examination using curved array transducer. FINDINGS: Liver is normal in contour, size, and echogenicity without focal hepatic lesions identified. Pancreas is incompletely evaluated due to interposed bowel gas. The gallbladder demonstrates small layering gallstones without gallstones, wall thickening, or pericholecystic fluid. No biliary ductal dilatation is appreciated and the common bile duct measures 4.3 mm diameter. Right kidney is normal in reniform shape without hydronephrosis and measures 10.3 x 6.2 x 5.1 cm. No ascites in the visualized right upper quadrant. IMPRESSION: Cholelithiasis. <Electronically signed by Ten Mcintyre > 05/29/21 1024
== END ==
LOC: M RAD 09:19
PROVIDERS: ATTEND Internal Medicine Gastroenterology
DX: R11.2 Nausea with vomiting, unspecified (principal)

== ENCOUNTER → 2021-06-22 | Outpatient (CLI) | payer MEDICARE ==
[~2021-06-22] MED LIST changes: +ALPR0.25 PO; +CLOP75TA2 PO; +CO Q1CAP2 PO; +CYAN500T14 PO; +D31000TA2 PO; +FARX1TAB3 PO; +FLUO40CA PO; +HYDR-3911 PO; +IRON27TA2 PO; +METO1TAB32 PO; +OMEP40CA4 PO; +ONDA4TAB6 PO
== END ==
LOC: M LABSMTC 10:08
PROVIDERS: ATTEND Anesthesiology
DX: Z01.812 Encounter for preprocedural laboratory examination (principal); Z20.822 Contact with and (suspected) exposure to COVID-19

== ENCOUNTER 2021-06-27 06:44 | Day surgery (SDC) | payer MEDICARE ==
[~2021-06-27] VITALS: Ht 180.3 cm; Wt 93.4 kg
[~2021-06-27 06:44] MED LIST changes: +NS 1,000 ML IV ONE
[2021-06-27] MEDS ORDERED: fentaNYL 100 MCG/2 ML INJECTION (J3010) As Ordered ONE (08:31)
[2021-06-27] MEDS ORDERED: propofoL 200 MG/20 ML VIAL As Ordered ONE (08:31)
[2021-06-27] MEDS ORDERED: LIDOCAINE 2% 100MG/5ML SDV (FOR ANES.) As Ordered ONE (08:31)
--- NOTE | 2021-06-27 09:39 | ROOR ---
Patient Name: Abelino Simon Procedure Date: 06/27/2021 8:38 AM Date of : 1940 Age: 81 Room: [facility] Gender: Male Note Status: Finalized Procedure: Upper GI endoscopy Indications: Unexplained iron deficiency anemia, Nausea with vomiting Providers: Brian Zhao MD Referring MD: PEYTON MONTGOMERY DO Requesting Provider: Medicines: Monitored Anesthesia Care Complications: No immediate complications. Procedure: Pre-Anesthesia Assessment: - Prior to the procedure, a History and Physical was performed, and patient medications and allergies were reviewed. The patient is competent. The risks and benefits of the procedure and the sedation options and risks were discussed with the patient. All questions were answered and informed consent was obtained. Patient identification and proposed procedure were verified by the physician, the nurse and the anesthesiologist in the procedure room. Mental Status Examination: alert and oriented. Airway Examination: normal oropharyngeal airway and neck mobility. Respiratory Examination: clear to auscultation. CV Examination: normal. Prophylactic Antibiotics: The patient does not require prophylactic antibiotics. Prior Anticoagulants: The patient has taken Plavix (clopidogrel), last dose was 5 days prior to procedure. ASA Grade Assessment: III - A patient with severe systemic disease. After reviewing the risks and benefits, the patient was deemed in satisfactory condition to undergo the procedure. The anesthesia plan was to use monitored anesthesia care (MAC). Immediately prior to administration of medications, the patient was re-assessed for adequacy to receive sedatives. The heart rate, respiratory rate, oxygen saturations, blood pressure, adequacy of pulmonary ventilation, and response to care were monitored throughout the procedure. The physical status of the patient was re-assessed after the procedure. The Endoscope was introduced through the mouth, and advanced to the second part of duodenum. The upper GI endoscopy was accomplished without difficulty. The patient tolerated the procedure well. Findings: The esophagus and gastroesophageal junction were examined with white light and narrow band imaging (NBI) from a forward view and retroflexed position. There were esophageal mucosal changes suspicious for long-segment Phillips's esophagus. These changes involved the mucosa along an irregular Z-line (38 cm from the incisors). Two tongues of salmon-colored mucosa were present from 38 to 43 cm and hiatal narrowing was identified at 45 cm. The maximum longitudinal extent of these esophageal mucosal changes was 5 cm in length. Mucosa was biopsied with a cold forceps for histology. One specimen bottle was sent to pathology. Verification of patient identification for the specimen was done by the physician and nurse using the patient's name, date and medical record number. Estimated blood loss was minimal. A medium-sized hiatal hernia was present. Scattered moderate inflammation characterized by erythema and granularity was found in the gastric antrum. Biopsies were taken with a cold forceps for histology. Biopsies were taken with a cold forceps for Helicobacter pylori testing. A small non-bleeding diverticulum was found in the third portion of the duodenum. Normal mucosa was found in the entire duodenum. Biopsies for histology were taken with a cold forceps for evaluation of celiac disease. 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 Biopsied. - Medium-sized hiatal hernia. - Gastritis. Biopsied. - Non-bleeding duodenal diverticulum. - Normal mucosa was found in the entire examined duodenum. Biopsied. Recommendation: - Patient has a contact number available for emergencies. The signs and symptoms of potential delayed complications were discussed with the patient. Return to normal activities tomorrow. Written discharge instructions were provided to the patient. - High fiber diet. - Continue present medications. - Resume Plavix (clopidogrel) at prior dose tomorrow. Refer to primary physician for further adjustment of therapy. - Await pathology results. - Follow an antireflux regimen. - Use Prilosec (omeprazole) 40 mg PO Daily - to be taken endoscopy tech on empty stomach. - Use sucralfate suspension 1 gram PO BID for 6 weeks. - Repeat upper endoscopy in 1 year to assess disease activity and to evaluate the response to therapy. - Telephone GI clinic for pathology results in 2 weeks. - Return to GI clinic if persistent symptoms or new symptoms. - Return to primary care physician. Procedure Code(s): --- Professional --- 71874, Esophagogastroduodenoscopy, flexible, transoral; with biopsy, single or multiple Diagnosis Code(s): --- Professional --- K22.8, Other specified diseases of esophagus K44.9, Diaphragmatic hernia without obstruction or gangrene K29.70, Gastritis, unspecified, without bleeding D50.9, Iron deficiency anemia, unspecified R11.2, Nausea with vomiting, unspecified K57.10, Diverticulosis of small intestine without perforation or abscess without bleeding CPT copyright 2019 [employer]. All rights reserved. The codes documented in this report are preliminary and upon health information coder review may be revised to meet current compliance requirements. Brian Zhao MD Brian Zhao MD 06/27/2021 9:39:30 AM Electronically signed by Brian Zhao MD Number of Addenda: 0 Note Initiated On: 06/27/2021 8:38 AM Estimated Blood Loss: Estimated blood loss was minimal.
[2021-06-27 09:45] VITALS: BP 128/60
--- NOTE | 2021-06-27 10:13 | ROOR ---
Patient Name: Abelino Simon Procedure Date: 06/27/2021 8:39 AM Date of : 1940 Age: 81 Room: [facility] Gender: Male Note Status: Finalized Procedure: Colonoscopy Indications: Iron deficiency anemia Providers: Brian Zhao MD Referring MD: PEYTON MONTGOMERY DO Requesting Provider: Medicines: Monitored Anesthesia Care Complications: No immediate complications. Procedure: Pre-Anesthesia Assessment: - Prior to the procedure, a History and Physical was performed, and patient medications and allergies were reviewed. The patient is competent. The risks and benefits of the procedure and the sedation options and risks were discussed with the patient. All questions were answered and informed consent was obtained. Patient identification and proposed procedure were verified by the physician, the nurse and the anesthesiologist in the procedure room. Mental Status Examination: normal. Airway Examination: normal oropharyngeal airway and neck mobility. Respiratory Examination: clear to auscultation. CV Examination: normal. Prophylactic Antibiotics: The patient does not require prophylactic antibiotics. Prior Anticoagulants: The patient has taken Plavix (clopidogrel), last dose was 5 days prior to procedure. ASA Grade Assessment: III - A patient with severe systemic disease. After reviewing the risks and benefits, the patient was deemed in satisfactory condition to undergo the procedure. The anesthesia plan was to use monitored anesthesia care (MAC). Immediately prior to administration of medications, the patient was re-assessed for adequacy to receive sedatives. The heart rate, respiratory rate, oxygen saturations, blood pressure, adequacy of pulmonary ventilation, and response to care were monitored throughout the procedure. The physical status of the patient was re-assessed after the procedure. The Colonoscope was introduced through the anus and advanced to the terminal ileum, with identification of the appendiceal orifice and IC valve. The colonoscopy was performed without difficulty. The patient tolerated the procedure well. The quality of the bowel preparation was good. The terminal ileum, ileocecal valve, appendiceal orifice, and rectum were photographed. Scope insertion time was 2 minutes. Scope withdrawal time was 9 minutes. The total duration of the procedure was 14 minutes. Findings: The perianal and digital rectal examinations were normal. The terminal ileum appeared normal. Five sessile polyps were found in the rectum, transverse colon and ascending colon. The polyps were 6 to 12 mm in size. These polyps were removed with a cold snare. Resection and retrieval were complete. To close a defect after polypectomy, one hemostatic clip was successfully placed. There was no bleeding at the end of the procedure. Verification of patient identification for the specimen was done by the physician and nurse using the patient's name, date and medical record number. Estimated blood loss was minimal. Multiple small and large-mouthed diverticula were found from sigmoid to descending colon. There was no evidence of diverticular bleeding. Non-bleeding external and internal hemorrhoids were found during retroflexion. The hemorrhoids were medium-sized. Impression: - The examined portion of the ileum was normal. - Five 6 to 12 mm polyps in the rectum, in the transverse colon and in the ascending colon, removed with a cold snare. Resected and retrieved. Clip was placed. - Moderate diverticulosis from sigmoid to descending colon. There was no evidence of diverticular bleeding. - Non-bleeding external and internal hemorrhoids. Recommendation: - Patient has a contact number available for emergencies. The signs and symptoms of potential delayed complications were discussed with the patient. Return to normal activities tomorrow. Written discharge instructions were provided to the patient. - High fiber diet. - Continue present medications. - Resume Plavix (clopidogrel) at prior dose tomorrow. Refer to primary physician for further adjustment of therapy. - Await pathology results. - Use fiber, for example Citrucel, Fibercon, Konsyl or Metamucil. - Telephone GI clinic for pathology results in 2 weeks. - Return to GI clinic if persistent symptoms or new symptoms. - Repeat colonoscopy in 3 years for surveillance based on pathology results. - Return to primary care physician. Procedure Code(s): --- Professional --- 57235, Colonoscopy, flexible; with removal of tumor(s), polyp(s), or other lesion(s) by snare technique Diagnosis Code(s): --- Professional --- K64.8, Other hemorrhoids K62.1, Rectal polyp K63.5, Polyp of colon D50.9, Iron deficiency anemia, unspecified K57.30, Diverticulosis of large intestine without perforation or abscess without bleeding CPT copyright 2019 [employer]. All rights reserved. The codes documented in this report are preliminary and upon orthopedic coder review may be revised to meet current compliance requirements. Brian Zhao MD Brian Zhao MD 06/27/2021 10:13:14 AM Electronically signed by Brian Zhao MD Number of Addenda: 0 Note Initiated On: 06/27/2021 8:39 AM Estimated Blood Loss: Estimated blood loss was minimal.
== END 2021-06-27 10:07 | disposition home or self-care (01) ==
LOC: M OPP 06:44
PROVIDERS: ATTEND Internal Medicine Gastroenterology
DX: K63.5 Polyp of colon (principal); K62.1 Rectal polyp; K64.8 Other hemorrhoids; K57.30 Diverticulosis of large intestine without perforation or abscess without bleeding; K22.8 Other specified diseases of esophagus; K44.9 Diaphragmatic hernia without obstruction or gangrene; R11.2 Nausea with vomiting, unspecified; D50.9 Iron deficiency anemia, unspecified; I25.2 Old myocardial infarction; Z79.899 Other long term (current) drug therapy; Z88.8 Allergy status to other drugs, medicaments and biological substances; Z91.018 Allergy to other foods
CPT/HCPCS: 43239; 45385; 88305; J3010

== ENCOUNTER → 2021-07-28 | Outpatient (REF) | payer MEDICARE ==
[~2021-07-28] MED LIST changes: -NS 1,000 ML IV ONE
== END ==
LOC: M LAB REF 12:58
PROVIDERS: ATTEND Internal Medicine Nephrology
DX: N25.81 Secondary hyperparathyroidism of renal origin (principal); E83.42 Hypomagnesemia

== ENCOUNTER → 2021-10-03 | Outpatient (CLI) | payer MEDICARE ==
[2021-10-03 12:58] LABS: BASO % 0.1 % (0.0-1.0); EOS # 0.2 10^3/uL (0.0-0.5); EOS % 2.2 % (0.0-3.0); HEMATOCRIT 39.4 % (42.0-52.0); HEMOGLOBIN 12.5 g/dl (13.5-17.5); LYMPH # 1.5 10^3/uL (1.5-5.0); LYMPH % 16.8 % (24.0-44.0); MEAN CORPUSCULAR HEMOGLOBIN 31.6 pg (27.0-33.0); MEAN CORPUSCULAR HGB CONC 31.7 g/dl (32.0-36.5); MEAN CORPUSCULAR VOLUME 99.7 fl (80.0-96.0); MONO # 0.8 10^3/uL (0.0-0.8); NEUTROPHILS # 6.5 10^3/uL (1.5-8.5); NEUTROPHILS % 71.1 % (36.0-66.0); PLATELET COUNT, AUTOMATED 207 10^3/uL (150-450); RED BLOOD COUNT 3.95 10^6/uL (4.30-6.10); WHITE BLOOD COUNT 9.2 10^3/uL (4.0-10.0)
== END ==
LOC: M LAB 11:03
PROVIDERS: ATTEND Physician Assistant Medical
DX: D50.9 Iron deficiency anemia, unspecified (principal)

== ENCOUNTER → 2022-06-10 | Outpatient (CLI) | payer MEDICARE ==
[~2022-06-10] MED LIST changes: -AMIO200T3 PO; +AMIO200T49 PO; -CEFD1CAP8 PO; +CEFD300C41 PO; -D31000TA2 PO; +ISOS10TA3 PO; -ISOS1TAB13 PO; -LISI-898 PO; +LISI5TAB11 PO; +POTA-149 PO; -POTA10TA16 PO; +VITA100093 PO
[2022-06-10 10:38] LABS: HEMATOCRIT 38.5 % (42.0-52.0); HEMOGLOBIN 12.3 g/dl (13.5-17.5); MEAN CORPUSCULAR HEMOGLOBIN 31.5 pg (27.0-33.0); MEAN CORPUSCULAR HGB CONC 31.9 g/dl (32.0-36.5); MEAN CORPUSCULAR VOLUME 98.5 fl (80.0-96.0); PLATELET COUNT, AUTOMATED 216 10^3/uL (150-450); RED BLOOD COUNT 3.91 10^6/uL (4.30-6.10); WHITE BLOOD COUNT 8.1 10^3/uL (4.0-10.0)
[2022-06-10 11:17] LABS: ALBUMIN 3.3 GM/DL (3.2-5.2); BILIRUBIN,TOTAL 0.7 MG/DL (0.2-1.0); CALCIUM LEVEL 9.2 MG/DL (8.8-10.2); CREATININE FOR GFR 1.66 MG/DL (0.70-1.30); GLOMERULAR FILTRATION RATE 42.5 (>35); PERCENT SATURATION 30.3 % (19.7-50.0); POTASSIUM SERUM 4.2 MEQ/L (3.5-5.1); TOTAL PROTEIN 6.7 GM/DL (6.4-8.2)
== END ==
LOC: M LAB 10:11
PROVIDERS: ATTEND Physician Assistant Medical
DX: I10 Essential (primary) hypertension (principal); D50.8 Other iron deficiency anemias

== ENCOUNTER → 2022-07-07 | Outpatient (CLI) | payer MEDICARE ==
[2022-07-07 13:08] LABS: HEMOGLOBIN A1c 6.7 %
== END ==
LOC: M LAB 11:43
PROVIDERS: ATTEND Physician Assistant Medical
DX: R73.09 Other abnormal glucose (principal)